=== PATIENT | male | born 1935 | race Caucasian/White ===

== ENCOUNTER 2016-12-24 10:00 | Outpatient (CLI) | payer MEDICARE, OTHER ==
[2016-12-24 11:21] LABS: #Eosinphils 0.1 thou/uL (0.0-0.7); #Lymphocytes 1.3 thou/uL (1.20-3.40); #Monocytes 0.8 thou/uL (0.11-0.59); #Neutrophils 5.2 thou/uL (1.40-6.50); %Basophils 0.6 % (0.0-1.0); %Eosinophils 1.6 % (0.0-10.0); %Lymphocytes 17.6 % (21.0-51.0); Mean Platelet Volume 7.7 fL (7.4-10.4); Red Blood Cell (RBC) Count 4.62 mill/uL (4.70-6.10); White Blood Cell (WBC) Count 7.6 thou/uL (4.8-10.8)
[2016-12-24 11:45] LABS: Anion Gap 13 mmol/L (10-20); BUN (Urea Nitrogen) 15 mg/dL (8.4-25.7); Calc. Creatinine Clearance 0 mL/min (70-130); Calcium 9.7 mg/dL (7.8-10.44); Carbon Dioxide 28 mmol/L (23-31); Chloride 96 mmol/L (98-107); Estimated GFR-MDRD 64
== END 2016-12-24 10:01 | disposition home or self-care (01) ==
LOC: LABBT 10:00
PROVIDERS: ATTEND Surgery
DX: Z01.812 Encounter for preprocedural laboratory examination (principal); K40.20 Bilateral inguinal hernia, without obstruction or gangrene, not specified as recurrent
CPT/HCPCS: 80048; 85025

== ENCOUNTER 2017-01-04 14:13 | Inpatient (IN) | payer MEDICARE, OTHER ==
--- OUTSIDE RECORDS SUMMARY | 2017-01-04 15:06 | XMS | Clinical Summary ---
:1935 Author Organization [facility] Address [address] [place] [address] Phone Care Team Providers Name Role Phone , Primary Care Provider Unavailable Allergies Not on File Current Medications Not on file Active Problems Not on file Social History Tobacco Use Types Packs/Day Years Used Date Never Assessed Sex Assigned at Date Recorded Not on file Last Filed Vital Signs Not on file Plan of Treatment Not on file Results Not on filefrom Last 3 Months
[2017-01-04 15:24] LABS: #Eosinphils 0.1 thou/uL (0.0-0.7); #Lymphocytes 1.4 thou/uL (1.20-3.40); #Monocytes 0.9 thou/uL (0.11-0.59); #Neutrophils 5.3 thou/uL (1.40-6.50); %Basophils 0.3 % (0.0-1.0); %Eosinophils 0.9 % (0.0-10.0); %Lymphocytes 18.4 % (21.0-51.0); %Monocytes 11.5 % (0.0-10.0); Hematocrit 48.5 % (42.0-52.0); Mean Platelet Volume 7.6 fL (7.4-10.4); White Blood Cell (WBC) Count 7.7 thou/uL (4.8-10.8)
[2017-01-04 15:39] LABS: ALT (SGPT) 12 U/L (8-55); AST (SGOT) 14 U/L (5-34); Alkaline Phosphatase 78 U/L (40-150); Anion Gap 17 mmol/L (10-20); BUN (Urea Nitrogen) 18 mg/dL (8.4-25.7); Bilirubin, Total 1.4 mg/dL (0.2-1.2); Calc. Creatinine Clearance 0 mL/min (70-130); Calcium 9.9 mg/dL (7.8-10.44); Carbon Dioxide 25 mmol/L (23-31); Chloride 83 mmol/L (98-107); Estimated GFR-MDRD 60; Globulin 3.9 g/dL (2.4-3.5); Protein, Total 8.3 g/dL (5.8-8.1)
[2017-01-04 16:23] LABS: Troponin I Less than 0.010 ng/mL (< 0.028)
[2017-01-04 16:46] LABS: Bilirubin Negative (Negative); Blood, Urine Negative (Negative); Glucose, Urine (Dipstick) Negative (Negative); Ketone, Urine Negative (Negative); Nitrite Negative (Negative); Protein, Urine (Dipstick) Negative (Neg-Trace); Urobilinogen 0.2 mg/dL (0.2-1.0)
[2017-01-04] MEDS ORDERED: Ondansetron ODT 4 MG TAB SL PRN (17:19)
[2017-01-04] MEDS ORDERED: Ondansetron HCl/PF 4 MG/2 ML Vial IVP PRN (17:19)
[2017-01-04] MEDS ORDERED: Acetaminophen 325 MG TAB PO PRN ×2 (17:19→19:44)
[2017-01-04] MEDS ORDERED: Mag-Al 1200 mg/1200 mg/30 ML UDCUP PO PRN (19:44)
[2017-01-04] MEDS ORDERED: Senokot 8.6 MG TAB PO PRN (19:44)
[2017-01-04] MEDS: DOBUTamine 500 mg/250 ml 250 ML IVPB SCH (21:00)
[2017-01-04] MEDS: Famotidine 20 MG TAB PO SCH (21:01)
[2017-01-04] MEDS: Tamsulosin HCl 0.4 MG CAP PO SCH (21:01)
--- NOTE | 2017-01-04 22:20 | RAD ---
AP VIEW OF THE CHEST 01/04/17 INDICATION: Congestion and orthopnea. COMPARISON: Prior exam dated 12/30/16. FINDINGS: Since the comparison examination there has been worsening opacification of the left lower lobe with a small left pleural effusion. The findings may reflect changes of a pleural effusion with atelectas is; however, pneumonia with a parapneumonic effusion cannot be excluded. Recommend correlation. Ther e is moderate cardiomegaly with mild pulmonary vascular congestion and interstitial prominence. No a cute osseous abnormality is evident. IMPRESSION: Worsening of left basilar air space opacity with small left pleural effusion may reflect pneumonia w ith parapneumonic effusion. Recommend correlation. There is mild cardiomegaly and pulmonary vascular congestion. Mild CHF cannot be excluded. Recommend followup. POS: JUAN
[2017-01-04] MEDS ORDERED: Melatonin 3 MG TAB PO PRN (22:39)
--- NOTE | 2017-01-04 23:02 | HP ---
REASON FOR ADMISSION: Acute CHF exacerbation with systolic dysfunction with known ejection fraction of around 20%, hyponatremia, confusion. HISTORY OF PRESENTING ILLNESS: The patient gives history of having severe orthopnea and has not been able to sleep for the last 2-3 days now. He also mentions that he has a bad cough with no expectoration as such. He has inguinal hernia on the left side, which is hurting him each time he coughs. No complaints of chest pain as such. He has been to the ER 2 times in the last 1 week or so for above complaints. This morning, he was confused and was taken to Dr. Jean-Baptiste's office. His oxygen saturations were 87% and he had a low blood pressure and was sent to the ER for possible dehydration and confusion per ER physician. Has no complaints of fever. Patient has frequency of urination and is about to start a prostate medication. Patient drinks usually 4 liters of water daily. His son-in-law at bedside, Mr. Pritchett, adds that he normally ambulates by himself, but he has not been able to mobilize well in the last 1 week. PAST MEDICAL AND SURGICAL HISTORY: History of CHF with an ejection fraction of around 20%, prior history of cholecystectomy, right endarterectomy, right shoulder surgery, history of cerebrovascular accident with no residual paralysis , coronary artery disease, prior history of DVT in the right leg after knee surgery. CURRENT MEDICATIONS: Lasix 40 mg p.o. daily and Coreg 6.25 mg p.o. twice daily. ALLERGIES: Allergic to ASPIRIN. PERSONAL HISTORY: Does not abuse alcohol or drugs. No history of smoking. FAMILY HISTORY: Mom at the age of 38 years from gangrene and its complications. Father has had history of coronary artery disease/[place] and at the age of 85 years. REVIEW OF SYSTEMS: The following complete review of systems was negative, unless otherwise mentioned in the HPI or below: Constitutional: Weight loss or gain, ability to conduct usual activities. Skin: Rash, itching. Eyes: Double vision, pain. ENT/Mouth: Nose bleeding, neck stiffness, pain, tenderness. Cardiovascular: Palpitations, dyspnea on exertion, orthopnea. Respiratory: Shortness of breath, wheezing, cough, hemoptysis, fever or night sweats. Gastrointestinal: Poor appetite, abdominal pain, heartburn, nausea, vomiting, constipation, or diarrhea. Genitourinary: Urgency, frequency, dysuria, nocturia. Musculoskeletal: Pain, swelling. Neurologic/Psychiatric: Anxiety, depression. Allergy/Immunologic: Skin rash, bleeding tendency. PHYSICAL EXAMINATION: GENERAL: The patient is an 81-year-old male who is currently comfortable at 40 degrees head and elevation on the ER [facility]. VITAL SIGNS: Blood pressure 105/74, pulse 76 per minute, respiratory rate 18 per minute, temperature 97.6 degrees Fahrenheit and saturating 99% on room air. NECK: Supple. There is mild elevation in JVD. HEENT: Eyes; extraocular muscles intact. Pupils reacting to light. Oral cavity; mucous membranes are dry. No exudates or congestion. CARDIOVASCULAR SYSTEM: S1, S2 heard. Regular rhythm. RESPIRATORY SYSTEM: Air entry 1+ bilateral rales plus in the infrascapular area. ABDOMEN: Soft, bowel sounds heard. No tenderness, rigidity or guarding. Has a reducible left inguinal hernia. EXTREMITIES: No peripheral edema or calf tenderness. VASCULAR SYSTEM: Peripheral pulses 1+ bilateral. No ischemic ulcerations or gangrene. CENTRAL NERVOUS SYSTEM: No gross focal deficits seen. The patient is currently awake and oriented well. PSYCHIATRIC SYSTEM: The patient's mood is euthymic. No hallucinations or delusions. LABORATORY AND IMAGING DATA: White count of 7, hemoglobin and hematocrit 16 and 48, platelet count 239, MCV is 97 with 68% neutrophils. Sodium 120, chloride 83, BUN 18, creatinine 1.1, glucose 127 and total bilirubin 1.4. Liver enzymes are within normal limits. BNP is 1690. First set of cardiac enzymes are negative. Albumin is 4.4. Chest x-ray shows chronic changes with mild pulmonary vascular congestion. CLINICAL IMPRESSION AND PLAN: The patient will be admitted to telemetry for acute on chronic congestive heart failure exacerbation with systolic dysfunction and ejection fraction of around 20% to 25% per last echo. He was also hypotensive with systolic blood pressures of 90 at present. In view of this, he will be on dobutamine drip at 5 mcg/kg per minute to allow for diuresis. He will be placed on Lasix 20 mg IV q.12 hourly if systolic blood pressure permits. He states he normally trends his systolic blood pressures in the 120s. In view of his prostate symptoms and the need for current diuresis, we will place him on Flomax 0.4 mg p.o. at bedtime. We will consult Dr. Nunes, his construction controller, and Dr. Beck for hyponatremia with likely due to congestive heart failure exacerbation. We will continue to closely monitor him on telemetry. Power of patent attorney is his daughter, her name is Sara or his son-in-law, Mr. Pritchett. He is a FULL CODE for now. MTDD
[2017-01-04] MEDS ORDERED: Zolpidem Tartrate 5 MG TAB PO SCH (23:45)
[2017-01-05 05:43] LABS: #Eosinphils 0.1 thou/uL (0.0-0.7); #Lymphocytes 1.3 thou/uL (1.20-3.40); #Neutrophils 5.3 thou/uL (1.40-6.50); %Basophils 0.4 % (0.0-1.0); %Eosinophils 1.4 % (0.0-10.0); %Lymphocytes 16.5 % (21.0-51.0); %Monocytes 13.2 % (0.0-10.0); Hematocrit 40.6 % (42.0-52.0); Mean Platelet Volume 7.6 fL (7.4-10.4); Red Blood Cell (RBC) Count 4.17 mill/uL (4.70-6.10); White Blood Cell (WBC) Count 7.7 thou/uL (4.8-10.8)
[2017-01-05 06:13] LABS: ALT (SGPT) 10 U/L (8-55); AST (SGOT) 12 U/L (5-34); Alkaline Phosphatase 55 U/L (40-150); Anion Gap 10 mmol/L (10-20); BUN (Urea Nitrogen) 15 mg/dL (8.4-25.7); Calc. Creatinine Clearance 59 mL/min (70-130); Calcium 8.8 mg/dL (7.8-10.44); Carbon Dioxide 26 mmol/L (23-31); Chloride 91 mmol/L (98-107); Estimated GFR-MDRD 67; Globulin 2.6 g/dL (2.4-3.5); Protein, Total 5.9 g/dL (5.8-8.1)
[2017-01-05] MEDS: Furosemide 20 MG/2 ML VIAL SLOW IVP SCH ×2 (06:52→14:20)
[2017-01-05] MEDS: Famotidine 20 MG TAB PO SCH ×2 (10:48→21:43)
[2017-01-05] MEDS: Enoxaparin Sodium 40 MG/0.4 ML SYRINGE SC SCH (10:49)
[2017-01-05] MEDS ORDERED: Communication Order-Pharmacy FS SCH (14:15)
--- NOTE | 2017-01-05 15:11 | CON ---
DATE OF CONSULTATION: 01/05/2017 REASON FOR CONSULTATION: Acute on chronic systolic heart failure and preop clearance. PRIMARY CARE PROVIDER: Dr. Littlejohn. HISTORY OF PRESENT ILLNESS: Mr. Cline is an 81-year-old gentleman who I have seen and evaluated in the past. He has a history of cardiomyopathy of unknown etiology. He recently presented with multi ple ER admissions for heart failure. He was subsequently admitted. He was found to be significantl y hyponatremic. He was placed on Dobutrex. Diastolic EF has been in the 20-25% range. He has been somewhat compliant with medical therapy. PAST MEDICAL HISTORY: As above including carotid endarterectomy, cholecystectomy, shoulder surgery, CVA, previous DVT. MEDICATIONS: Coreg, Lasix. ALLERGIES: ASPIRIN. FAMILY HISTORY: Negative for CAD. REVIEW OF SYSTEMS: A 10-point systems is reviewed and as above, otherwise negative. PHYSICAL EXAMINATION: VITAL SIGNS: Blood pressure 127/56, pulse 84, temperature afebrile. GENERAL: Patient is a pleasant male who is in no acute distress. The patient appears his stated ag e. NEUROLOGIC: The patient is alert and oriented times 3 with no focal neurologic deficits. HEENT: Sclerae without icterus. Mouth has moist mucous membranes with normal pallor. NECK: No JVD. Carotid upstroke brisk. No bruits bilaterally. LUNGS: Clear to auscultation with unlabored respirations. Crackles noted bilaterally BACK: No scoliosis or kyphosis. CARDIAC: Regular rate and rhythm with normal S1 and S2. No S3 or S4 noted. No significant rubs, m urmurs, thrills, or gallops noted throughout the precordium. PMI is not displaced. There is no par asternal heave. ABDOMEN: Soft, nontender, nondistended. No peritoneal signs present. No hepatosplenomegaly. No a bnormal striae. EXTREMITIES: 2+ femoral and 2+ dorsalis pedis pulses. No cyanosis, clubbing, or edema. SKIN: No gross abnormalities. PERTINENT LABS: Hemoglobin 13.4. Initial sodium of 120 up to 126. IMPRESSION: 1. Acute on chronic systolic heart failure. 2. Noncompliance. 3. Preop clearance. 4. Hyponatremia. RECOMMENDATIONS: I had a long discussion about how to proceed with Mr. Cline. I previously recomme nded a noninvasive stress study to assess for any areas of ischemia. I would feel more prudent to p kelsey with angiography given his high risk features of a decreased LVEF. We will proceed with a di agnostic angio only. He is allergic to ASPIRIN. This would be in preparation for surgery. He is a menable. I discussed the procedure in full detail with Mr. Cline. Risks included, are not limited to the following: , stroke, ID, need for emergency surgery, loss of limb, bleeding, and infect ion, as well as a reaction to the dye causing kidney failure and needing long-term dialysis. I also discussed the risks of PCI to include all of the above including coronary dissection and perforatio n in addition to acute stent thrombosis and restenosis. All questions about the procedure were answ ered. Given the above, the patient agreed to proceed with the above procedure. I would like to get him off Dobutrex and make sure he is euvolemic prior to proceeding. He agrees.
--- NOTE | 2017-01-05 15:41 | PDOC.PN ---
- Subjective Encounter Start Date: 01/05/17 Encounter Start Time: 15:35 Subjective: f/u for acute/chronic systolic CHF exacerbation with associated hyponatremi -: and hypotension. Remains on Dobutamine gtt for diuresis and Na+ improved -: Initial plan for [facility] to define anatomy and wean off Dobutamine. - Objective Resuscitation Status: Resuscitation Status FULL:Full Resuscitation MAR Reviewed: Yes Vital Signs & Weight: Vital Signs (12 hours) Pulse Pulse Pulse Pulse BP BP BP 01/05/17 10:40 84 80 127/56 L 172/65 H 01/05/17 09:50 81 88 105/55 L 106/57 L 01/05/17 08:21 89 93 95 91 93/50 L 95/53 L 93/47 L BP Pulse Ox Pulse Ox 01/05/17 10:40 96 01/05/17 09:50 94 L 98 01/05/17 08:21 94/51 L Weight Weight 168 lb I&O: 01/04/17 01/05/17 01/06/17 06:59 06:59 06:59 Intake Total 535 Output Total 1500 Balance -965 Result Diagrams: 01/05/17 05:09 01/05/17 13:44 Additional Labs: Laboratory Tests 07/06/16 12/30/16 01/04/17 02:35 08:00 14:59 Sodium 120 L Total Bilirubin 1.4 H B-Natriuretic Peptide 1138.1 H 1954.6 H 01/04/17 01/05/17 14:59 05:09 Sodium 123 L Total Bilirubin 1.0 B-Natriuretic Peptide 1690.4 H Radiology Reviewed by me: Yes (PCXR - bilat pulm edema, LLL opacity, chronic) EKG Reviewed by me: Yes (Tele - SR in 90's) Phys Exam - Physical Examination Constitutional: NAD alert, responsive HEENT: PERRLA, oral pharynx no lesions Neck: no JVD, supple mild diminished sounds in L base Cardiovascular: RRR Gastrointestinal: soft, non-tender, no distention, positive bowel sounds Musculoskeletal: no edema, pulses present Neurological: normal sensation, moves all 4 limbs Psychiatric: A&O x 3 Skin: normal turgor, cap refill <2 seconds Dx/Plan (1) Acute on chronic systolic congestive heart failure, NYHA class 2 Code(s): I50.23 - ACUTE ON CHRONIC SYSTOLIC (CONGESTIVE) HEART FAILURE Status : Acute Comment: EF 20-25%, continue Dobutamine gtt for renal perfusion and diuresis, plan for LHC to define coronary anatomy (2) Hyponatremia Code(s): E87.1 - HYPO-OSMOLALITY AND HYPONATREMIA Status: Acute Comment: Improved, secondary to volume overload in context of CHF exacerbation (3) Non-compliance Code(s): Z91.19 - PATIENT'S NONCOMPLIANCE W OTH MEDICAL TREATMENT AND REGIMEN Status: Chronic Comment: Improved, agreeing to pursue LHC for define coronary anatomy (4) Cardiomyopathy Code(s): I42.9 - CARDIOMYOPATHY, UNSPECIFIED Status: Chronic Comment: Unclear if ischemic in nature, plan for LHC as previously stated (5) Inguinal hernia of left side without obstruction or gangrene Code(s): K40.90 - UNIL INGUINAL HERNIA, W/O OBST OR GANGR, NOT SPCF RECUR Status: Chronic Comment: Likely will need surgical intervention, elective - Plan plan discussed w/ family Stable overall -: Wean off Dobutamine gtt -: Plan for LHC in am -: Trial Mucinex DM po BID -: Tessalon 200mg TID * AM lab: BMP
--- NOTE | 2017-01-05 16:14 | PRG ---
DATE OF SERVICE: 01/05/2017 SUBJECTIVE: Patient was seen and examined at bedside and overnight events noted. Patient denies an y shortness of breath or chest pain or palpitation. No history of nausea or vomiting or diarrhea or fever or chills or cramps. OBJECTIVE: GENERAL: This is a well-built white male in no apparent distress. VITAL SIGNS: Temperature 98.7, pulse 80, respiratory rate 18, blood pressure 127/50. HEENT: Atraumatic, normocephalic. Oral mucosa is moist. NECK: Supple, no masses. CARDIOVASCULAR: S1, S2. Rate and rhythm regular. RESPIRATORY: Clear. MUSCULOSKELETAL: No tenderness, no edema. DERMATOLOGIC: No skin rash. NEUROLOGIC: Alert and awake. PSYCHIATRIC: Mood and affect normal. LABORATORY DATA: Sodium is 126, phosphorus 3.7, BUN is 16, creatinine is 1.0. ASSESSMENT AND PLAN: 1. Hyponatremia, most likely from hypervolemia and cardiorenal syndrome. Sodium level getting bett er, it is 126 now. Continue on current management. 2. Limit fluid intake. 3. Hyperchloremia. 4. Edema controlled. 5. Hypertension. 6. Cardiorenal syndrome. 7. Continue Lasix. We will follow.
[2017-01-05] MEDS: guaiFENesin/DM ER PO SCH (16:17)
[2017-01-05] MEDS ORDERED: Benzonatate 100 MG CAP PO SCH (16:30)
[2017-01-05] MEDS: DOBUTamine 500 mg/250 ml 250 ML IVPB SCH (16:32)
--- NOTE | 2017-01-05 16:56 | CON ---
DATE OF SERVICE: 01/04/2017 NEPHROLOGY CONSULTATION NOTE CONSULTING PHYSICIAN: Isaías Littlejohn M.D. REASON FOR CONSULTATION: Hyponatremia. REASON FOR ADMISSION: Shortness of breath and confusion. HISTORY OF PRESENT ILLNESS: This is an 81-year-old male with history of congestive heart failure, cerebrovascular accident, carotid artery disease, and coronary artery disease, who came to the hospital with above complaints and was found to have sodium of 120. Nephrology was consulted. The patient was given IV Lasix and is feeling better. His sodium was also improved to 123 from 120. No fever or chills, no nausea or vomiting, no diarrhea. No shortness of breath. No chest pain or palpitation reported. PAST MEDICAL HISTORY: Positive for CHF, carotid artery disease, cerebrovascular accident, coronary artery disease, DVT. PAST SURGICAL HISTORY: Cholecystectomy, right endarterectomy, right shoulder surgery. HOME MEDICATIONS: Lasix and Coreg. ALLERGIES: ASPIRIN. SOCIAL HISTORY: No smoking, alcohol or illicit drug abuse. FAMILY HISTORY: No history of kidney disease. REVIEW OF SYSTEMS: The following complete review of systems was negative, unless otherwise mentioned in the HPI or below: Constitutional: Weight loss or gain, ability to conduct usual activities. Skin: Rash, itching. Eyes: Double vision, pain. ENT/Mouth: Nose bleeding, neck stiffness, pain, tenderness. Cardiovascular: Palpitations, dyspnea on exertion, orthopnea. Respiratory: Shortness of breath, wheezing, cough, hemoptysis, fever or night sweats. Gastrointestinal: Poor appetite, abdominal pain, heartburn, nausea, vomiting, constipation, or diarrhea. Genitourinary: Urgency, frequency, dysuria, nocturia. Musculoskeletal: Pain, swelling. Neurologic/Psychiatric: Anxiety, depression. Allergy/Immunologic: Skin rash, bleeding tendency. PHYSICAL EXAMINATION: GENERAL: This is a well-built male in no apparent distress. VITAL SIGNS: Temperature 97.7, pulse 82, respiratory rate 18, blood pressure 126/50. HEENT: Atraumatic, normocephalic. Oral mucosa is moist. NECK: Supple, no masses. CARDIOVASCULAR: S1, S2 heard. RESPIRATORY: Clear. ABDOMEN: Soft. MUSCULOSKELETAL: No tenderness, no edema. DERMATOLOGIC: No skin rash. NEUROLOGIC: Alert and awake. PSYCHIATRIC: Mood and affect normal. LABORATORY DATA: Hemoglobin is 13.4, potassium is 3.7. Sodium is 123 from 120 , BUN 50. Albumin is 3.9. ASSESSMENT AND PLAN: 1. Hyponatremia, most likely hypervolemic secondary to cardiorenal syndrome. Agree with Lasix for now. 2. Hypochloremia. 3. Acidosis. 4. Hypoalbuminemia. Increase protein intake. 5. Hypertension, stable. 6. Edema. 7. Cardiorenal syndrome. Continue on intravenous Lasix. 8. Limit fluid intake to 1 liter per day and continue on Lasix. We will monitor. Thank you for the consultation. INDY
[2017-01-05] MEDS ORDERED: guaiFENesin/DM ER PO SCH (17:00)
[2017-01-05] MEDS: Benzonatate 100 MG CAP PO SCH (21:43)
[2017-01-05] MEDS: Tamsulosin HCl 0.4 MG CAP PO SCH (21:44)
[2017-01-06] MEDS: Furosemide 20 MG/2 ML VIAL SLOW IVP SCH ×2 (05:15→15:12)
[2017-01-06] MEDS: Famotidine 20 MG TAB PO SCH ×2 (05:15→20:51)
[2017-01-06] MEDS: Enoxaparin Sodium 40 MG/0.4 ML SYRINGE SC SCH (05:16)
[2017-01-06] MEDS: Benzonatate 100 MG CAP PO SCH ×3 (05:16→20:51)
[2017-01-06 05:51] LABS: Anion Gap 15 mmol/L (10-20); BUN (Urea Nitrogen) 14 mg/dL (8.4-25.7); Calc. Creatinine Clearance 57 mL/min (70-130); Calcium 9.2 mg/dL (7.8-10.44); Carbon Dioxide 26 mmol/L (23-31); Chloride 90 mmol/L (98-107); Estimated GFR-MDRD 67
[2017-01-06] MEDS: guaiFENesin/DM ER PO SCH ×2 (09:38→20:50)
[2017-01-06] MEDS ORDERED: traMADol HCl 50 MG TAB PO PRN (10:40)
[2017-01-06] MEDS ORDERED: Nitroglycerin 0.4 MG TAB (25 Tab Bottle) SL PRN (10:40)
[2017-01-06] MEDS ORDERED: Acetaminophen/Codeine 30-300mg Tablet PO PRN ×2 (10:40)
[2017-01-06] MEDS ORDERED: Sodium Chloride 0.9% 1,000 ML IV SCH (10:45)
[2017-01-06] MEDS ORDERED: Sodium Chloride 0.9% 200 ML IV SCH (10:45)
--- NOTE | 2017-01-06 11:58 | PDOC.PN ---
- Subjective Encounter Start Date: 01/06/17 Encounter Start Time: 11:56 Mr. Cline says he is feeling fine. He denies feeling short of breath, and denies any chest pain. - Objective Resuscitation Status: Resuscitation Status FULL:Full Resuscitation MAR Reviewed: Yes Vital Signs & Weight: Vital Signs (12 hours) Pulse BP Pulse Ox Pulse Ox 01/06/17 09:29 93 111/57 L 92 L 01/06/17 04:30 93 L Weight Weight 167 lb 11.2 oz I&O: 01/05/17 01/06/17 01/07/17 06:59 06:59 06:59 Intake Total 535 1684 Output Total 1500 775 Balance -965 909 Result Diagrams: 01/05/17 05:09 01/06/17 05:06 Phys Exam - Physical Examination HEENT: PERRLA Respiratory: no wheezing, no rales, no rhonchi, clear to auscultation bilateral Cardiovascular: RRR, no significant murmur Gastrointestinal: soft, non-tender, positive bowel sounds Musculoskeletal: no edema Dx/Plan (1) Acute on chronic systolic congestive heart failure, NYHA class 2 Code(s): I50.23 - ACUTE ON CHRONIC SYSTOLIC (CONGESTIVE) HEART FAILURE Status : Acute Comment: EF 20-25%, continue Dobutamine gtt for renal perfusion and diuresis, plan for [facility] to define coronary anatomy (2) Hyponatremia Code(s): E87.1 - HYPO-OSMOLALITY AND HYPONATREMIA Status: Acute Comment: Improved, secondary to volume overload in context of CHF exacerbation (3) Cerebral vascular disease Code(s): I67.9 - CEREBROVASCULAR DISEASE, UNSPECIFIED Status: Chronic - Plan * Acute on chronic systolic heart failure- patient is diuresing well on Dobutamine * Hypotension- resolved * CAD- awaiting Cath results * Continue as per Cardiology.
[2017-01-06] MEDS ORDERED: Iopamidol 370 76% 100 ML VIAL ONE (14:46)
[2017-01-06] MEDS: DOBUTamine 500 mg/250 ml 250 ML IVPB SCH (15:12)
--- NOTE | 2017-01-06 15:40 | PRG ---
DATE OF SERVICE: 01/06/2017 SUBJECTIVE: Patient was seen and examined at bedside and overnight events noted. Patient denies an y shortness of breath or chest pain or palpitation. No history of nausea or vomiting or diarrhea or fever or chills or cramps. OBJECTIVE: GENERAL: This is a well-built male in no apparent distress. VITAL SIGNS: Temperature 97.9, pulse 100, respiratory rate 18, blood pressure 111/57. HEENT: Atraumatic, normocephalic. Oral mucosa is moist. NECK: Supple. CARDIOVASCULAR: S1 and S2 heard, rate and rhythm regular. RESPIRATORY: Clear to auscultation. GASTROINTESTINAL: Abdomen is soft. MUSCULOSKELETAL: No tenderness, no edema. DERMATOLOGIC: No skin rash. NEUROLOGIC: Alert and awake and oriented X3. No focal neurologic deficits. Moving all the extremi ties. PSYCHIATRIC: Mood and affect normal. LABORATORY DATA: Potassium is 3.8, sodium is 127, and creatinine 1.0. ASSESSMENT AND PLAN: 1. Hyponatremia. Sodium level is slowly getting better. Continue on current management. Continue on Lasix. Recommend fluid restriction 1 liter per day. 2. Hypochloremia. 3. Edema, controlled. 4. Hypertension. 5. Cardiorenal syndrome. Continue Lasix. Fluid restriction as tolerated.
[2017-01-06] MEDS: Tamsulosin HCl 0.4 MG CAP PO SCH (20:51)
[2017-01-07] MEDS: Furosemide 20 MG/2 ML VIAL SLOW IVP SCH (05:41)
[2017-01-07 09:08] LABS: Anion Gap 12 mmol/L (10-20); BUN (Urea Nitrogen) 12 mg/dL (8.4-25.7); Calc. Creatinine Clearance 53 mL/min (70-130); Calcium 9.4 mg/dL (7.8-10.44); Carbon Dioxide 29 mmol/L (23-31); Chloride 91 mmol/L (98-107); Estimated GFR-MDRD 62
[2017-01-07] MEDS: guaiFENesin/DM ER PO SCH (09:17)
[2017-01-07] MEDS: Benzonatate 100 MG CAP PO SCH ×2 (09:17→14:53)
[2017-01-07] MEDS: Enoxaparin Sodium 40 MG/0.4 ML SYRINGE SC SCH (09:19)
[2017-01-07] MEDS: Famotidine 20 MG TAB PO SCH (09:19)
--- NOTE | 2017-01-07 09:29 | PRG ---
Patient Name: CELIA FRANK Date of service: 01/07/2017 Subjective: Patient was seen and examined at bedside and overnight events noted. Patient denies any shortness of breath or chest pain or palpitation. No history of nausea or vomiting or diarrhea or fever or chills or cramps. Objective: General: This is a well-built male in no apparent distress. Vital signs : Temperature 97.9, pulse 70, respirations 18, blood pressure 105/59. HEENT: Atraumatic, normocephalic. Oral mucosa is moist. Neck: Supple. Cardiovascular: S1 S2 heard. Rate and rhythm regular. Respiratory: Clear to auscultation Gastrointestinal: Abdomen is soft. Musculoskeletal: No tenderness. No edema. Dermatologic: No skin rash Neurologic: Alert and awake and oriented X3. No focal neurologic deficits. Moving all the extremi ties. Psychiatric: Mood and affect normal. LABORATORY DATA: Sodium is 128, potassium is 4.1, BUN 12, creatinine 1.13. ASSESSMENT AND PLAN: 1. Hyponatremia secondary to fluid overload. Limit fluid intake and continue on Lasix. Continue h ome dose of Lasix. 2. Hypokalemia. 3. Edema. 4. Hypertension. 5. Cardiorenal syndrome. Continue on Lasix as tolerated at home, limit fluid intake.
--- NOTE | 2017-01-07 10:16 | PDOC.PN ---
- Subjective Encounter Start Date: 01/07/17 Encounter Start Time: 10:14 Mr. Cline says he is feeling fine. He denies chest pain or shortness of breath. - Objective Resuscitation Status: Resuscitation Status FULL:Full Resuscitation MAR Reviewed: Yes Vital Signs & Weight: Vital Signs (12 hours) Temp Pulse Resp BP Pulse Ox 01/07/17 08:30 92 17 145/61 H 95 01/07/17 05:00 90 105/59 L 01/07/17 04:00 97.9 F 73 18 154/63 H 96 01/07/17 02:46 99 01/07/17 00:00 94 128/58 L Weight Weight 168 lb I&O: 01/06/17 01/07/17 01/08/17 06:59 06:59 06:59 Intake Total 1684 700 Output Total 775 400 Balance 909 300 Result Diagrams: 01/05/17 05:09 01/07/17 08:39 Phys Exam - Physical Examination HEENT: PERRLA Respiratory: no wheezing, no rales, no rhonchi, clear to auscultation bilateral Cardiovascular: RRR, no significant murmur Gastrointestinal: soft, non-tender, positive bowel sounds Musculoskeletal: no edema Dx/Plan (1) Acute on chronic systolic congestive heart failure, NYHA class 2 Code(s): I50.23 - ACUTE ON CHRONIC SYSTOLIC (CONGESTIVE) HEART FAILURE Status : Acute Comment: EF 20-25%, continue Dobutamine gtt for renal perfusion and diuresis, plan for [facility] to define coronary anatomy (2) Hyponatremia Code(s): E87.1 - HYPO-OSMOLALITY AND HYPONATREMIA Status: Acute Comment: Improved, secondary to volume overload in context of CHF exacerbation (3) Cerebral vascular disease Code(s): I67.9 - CEREBROVASCULAR DISEASE, UNSPECIFIED Status: Chronic - Plan * Acute on chronic systolic heart failure- he is compensated * Stable for discharge later today..
--- NOTE | 2017-01-07 11:44 | DIS ---
DATE OF ADMISSION: 01/04/2017 DATE OF DISCHARGE: 01/07/2017 PRIMARY CARE PHYSICIAN: Louie Jean-Baptiste M.D. DISCHARGE DISPOSITION: Home. PRIMARY DISCHARGE DIAGNOSES: 1. Acute on chronic systolic heart failure. 2. Ischemic cardiomyopathy. 3. History of cerebral vascular disease. DISCHARGE MEDICATIONS: Lasix 40 mg daily and Coreg 3.125 mg twice a day. The patient is not being discharged on an KALPANA inhibitor due to chronic kidney disease and hypertension. PROCEDURES DONE THE DURING ADMISSION: The patient had a cardiac catheterization. CODE STATUS: FULL CODE. ALLERGIES: ASPIRIN and NSAIDS. HOSPITAL COURSE: Mr. Cline is a pleasant 81-year-old gentleman who presented to the emergency room with shortness of breath and some confusion. He was felt to be volume overloaded as well as having hyponatremia. The hyponatremia was felt to be secondary to decompensated heart failure and volume overload. He was admitted and seen by Cardiology. He was initially hypotensive on admission and as a result he was placed on dobutamine to help facilitate diuresis. He diuresed well during the course of his hospital stay. He underwent a cardiac catheterization showing some disease to the circumflex, which would be treated medically for now. He was instructed on fluid restriction as he had admitted taking an excessive amount of fluids prior to admission. He was also seen by Nephrology during this hospital stay and once stabilized, he was able to be discharged home to continue the same dose of Lasix and continue Coreg but at a lower dose due to 3.125mg twice day . He will need to be followed closely with regards to his volume status. He has a scale at home and has instructions on what to do when weighing himself. The patient was discharged home on 2016. INDY
[2017-01-07] MEDS ORDERED: Sodium Chloride 0.9% 250 ML 250 ML IVPB SCH (11:45)
--- NOTE | 2017-01-07 14:13 | PRG ---
DATE OF SERVICE: 01/07/2017 SUBJECTIVE: Mr. Cline is doing well. His only complaint is the food at the hospital. No chest isac n, pressure, shortness of breath. PHYSICAL EXAMINATION: VITAL SIGNS: Blood pressure 96/54, pulse 86, temperature 97.9. LUNGS: Clear to auscultation. CARDIAC: Regular rate and rhythm. ABDOMEN: Soft, nontender, nondistended. EXTREMITIES: No edema. IMPRESSION: 1. One-vessel coronary artery disease. 2. Acute on chronic systolic heart failure. 3. Noncompliance. 4. Hypotension. RECOMMENDATIONS: 1. Stop Lasix. 2. Given IV bolus of 250 mL. He is likely mildly volume contracted after Lasix. 3. Start dobutamine. 4. If stable, I would recommend discharge from my standpoint. Also, patient is felt to be low risk for cardiovascular complications for hernia repair. We would wait 3-4 weeks prior to proceeding gi guerrero recent acute heart failure.
[2017-01-07 16:46] VITALS: TEMP 99.2
[2017-01-07 18:59] VITALS: BP 117/62
--- NOTE | 2017-01-15 14:19 | EKG ---
Test Reason : Blood Pressure : / mmHG Vent. Rate : 075 BPM Atrial Rate : 075 BPM P-R Int : 196 ms QRS Dur : 118 ms QT Int : 434 ms P-R-T Axes : 046 -24 099 degrees QTc Int : 484 ms Sinus rhythm with occasional Premature ventricular complexes Possible Left atrial enlargement Left ventricular hypertrophy with QRS widening Abnormal ECG Confirmed by GERI TAVAREZ ([id number]), international editorial producer MADISON FERREIRA ([id number]) on 01/15/2017 2:19:04 PM Referred By: Confirmed By:GERI TAVAREZ
== END 2017-01-07 19:54 | disposition home or self-care (01) | DRG 286 ==
LOC: ERS 14:13 → T4-B 16:00 → 2NO 20:32
PROVIDERS: ADMIT Internal Medicine; ATTEND Internal Medicine
PROC: 4A023N7 Measurement of Cardiac Sampling and Pressure, Left Heart, Percutaneous Approach (ICD-10-PCS; principal; 2017-01-06)
PROC: B2111ZZ Fluoroscopy of Multiple Coronary Arteries using Low Osmolar Contrast (ICD-10-PCS; 2017-01-06)
PROC: B2151ZZ Fluoroscopy of Left Heart using Low Osmolar Contrast (ICD-10-PCS; 2017-01-06)
DX: I13.0 Hypertensive heart and chronic kidney disease with heart failure and stage 1 through stage 4 chronic kidney disease, or unspecified chronic kidney disease (principal); I50.23 Acute on chronic systolic (congestive) heart failure; I95.9 Hypotension, unspecified; E87.2 Acidosis; E87.8 Other disorders of electrolyte and fluid balance, not elsewhere classified; E88.09 Other disorders of plasma-protein metabolism, not elsewhere classified; E87.1 Hypo-osmolality and hyponatremia; I25.5 Ischemic cardiomyopathy; N18.9 Chronic kidney disease, unspecified; I25.10 Atherosclerotic heart disease of native coronary artery without angina pectoris; Z86.73 Personal history of transient ischemic attack (TIA), and cerebral infarction without residual deficits; Z86.718 Personal history of other venous thrombosis and embolism; Z91.19 Patient's noncompliance with other medical treatment and regimen; E87.6 Hypokalemia; K40.90 Unilateral inguinal hernia, without obstruction or gangrene, not specified as recurrent
CPT/HCPCS: 36415; 71010; 76942; 80048; 80053; 80061; 81003; 82553; 83880; 84484; 85025; 93005; 93306; 93458; 93798; 96360; A4216; C1760; C1769; G8978-GP-CI; G8979-GP-CI; G8980-GP-CI; G8987-GO-CI; G8988-GO-CI; G8989-GO-CI; J1250; J1644; J1650; J1940; J7050

== ENCOUNTER 2017-01-15 15:08 | Inpatient (IN) | payer MEDICARE, OTHER ==
--- OUTSIDE RECORDS SUMMARY | 2017-01-15 15:11 | XMS | Clinical Summary ---
:[address] [facility] Address [address] [place] [address] Phone Care Team Providers Name Role Phone [...]
--- NOTE | 2017-01-15 15:47 | RAD ---
UPRIGHT PORTABLE CHEST ONE VIEW 01/15/17 HISTORY: 81-year-old male with weakness and chest pain. COMPARISON: 01/04/17. FINDINGS: There is worsening left pleural effusion and bilateral vascular congestion and interstitial edema ch anges bilaterally with minimal cardiomegaly having more the appearance of congestive heart failure a nd pulmonary edema. The possibility of some minimal left lower lobe pneumonia or pneumonitis is a c onsideration as well. Correlate clinically. IMPRESSION: Evidence for congestive heart failure showing worsening from prior study Underlying left lower lobe pneumonia or pneumonitis is a consideration as well. POS: [facility]
[2017-01-15 15:54] LABS: #Basophils 0.1 thou/uL (0.0-0.2); #Eosinphils 0.1 thou/uL (0.0-0.7); #Lymphocytes 0.7 thou/uL (1.20-3.40); #Monocytes 0.7 thou/uL (0.11-0.59); #Neutrophils 4.9 thou/uL (1.40-6.50); %Basophils 1.2 % (0.0-1.0); %Eosinophils 1.6 % (0.0-10.0); %Lymphocytes 10.9 % (21.0-51.0); %Monocytes 11.3 % (0.0-10.0); Hematocrit 41.3 % (42.0-52.0); Mean Platelet Volume 7.1 fL (7.4-10.4); Red Blood Cell (RBC) Count 4.26 mill/uL (4.70-6.10); White Blood Cell (WBC) Count 6.5 thou/uL (4.8-10.8)
[2017-01-15 16:14] LABS: ALT (SGPT) 12 U/L (8-55); AST (SGOT) 14 U/L (5-34); Alkaline Phosphatase 75 U/L (40-150); Anion Gap 17 mmol/L (10-20); BUN (Urea Nitrogen) 11 mg/dL (8.4-25.7); Bilirubin, Total 0.7 mg/dL (0.2-1.2); CK (CPK) 30 U/L (30-200); Calc. Creatinine Clearance 0 mL/min (70-130); Carbon Dioxide 24 mmol/L (23-31); Chloride 82 mmol/L (98-107); Estimated GFR-MDRD 71; Globulin 3.3 g/dL (2.4-3.5); Protein, Total 6.9 g/dL (5.8-8.1)
[2017-01-15 16:19] LABS: Troponin I Less than 0.010 ng/mL (< 0.028)
[2017-01-15] MEDS ORDERED: Furosemide 40 MG/4 ML VIAL ONE (17:44)
[2017-01-15] MEDS ORDERED: Acetaminophen 650 MG Suppository PR PRN (17:50)
[2017-01-15] MEDS ORDERED: Acetaminophen 325 MG TAB PO PRN (17:50)
[2017-01-15] MEDS ORDERED: Ondansetron HCl/PF 4 MG/2 ML Vial IVP PRN (17:50)
[2017-01-15 18:52] LABS: Troponin I Less than 0.010 ng/mL (< 0.028)
[2017-01-15 19:57] LABS: Osmolality, Serum 244 mOsm/kg (280-295)
[2017-01-15 20:20] LABS: Anion Gap 14 mmol/L (10-20); Carbon Dioxide 25 mmol/L (23-31); Chloride 84 mmol/L (98-107)
--- NOTE | 2017-01-15 21:36 | HP ---
PRIMARY CARE PHYSICIAN: Louie Jean-Baptiste M.D. CHIEF COMPLAINT: Generalized weakness. HISTORY OF PRESENT ILLNESS: Mr. Cline is a pleasant 81-year-old gentleman who was seen at [facility] on 01/15/2017 complaining of generalized weakness. He reports that he has been unable to eat for the last 2 weeks. He reports that he feels full after eating a small amount of food. He occasionally vomits after eating. He also reports not having a bowel movement in 2 weeks; however, his daughter who was in the room corrected him saying he had a b owel movement yesterday. He denies any fevers or chills. He denies any nausea or vomiting. He thi nks he lost weight but is unable to tell me how much. REVIEW OF SYSTEMS: The following complete review of systems was negative, unless otherwise mentione d in the HPI or below: Constitutional: Weight loss or gain, sense of well-being, ability to conduct usual activities, exer cise tolerance. Skin/Breast: Rash, itching, changes in hair growth or loss, nail changes, breast lumps, tenderness, swelling, nipple discharge. Eyes: Vision, double vision, tearing, blind spots, pain. ENT/Mouth: Headaches (location, time of onset, duration, precipitating factors), vertigo, lighthead edness, injury. Vision, double vision, tearing, blind spots, pain, nose bleeding, colds, obstruction , discharge, dental difficulties, gingival bleeding, dentures, neck stiffness, pain, tenderness, mas ses in thyroid or other areas. Cardiovascular: Precordial pain, substernal distress, palpitations, syncope, dyspnea on exertion, o rthopnea, nocturnal paroxysmal dyspnea, edema, cyanosis, hypertension, heart murmurs, varicosities, phlebitis, claudication. Respiratory: Pain, shortness of breath, wheezing, stridor, cough, hemoptysis, fever or night sweats . Gastrointestinal: Poor appetite, dysphagia, indigestion, abdominal pain, heartburn, eructation, mekhi sea, vomiting, hematemesis, jaundice, constipation, or diarrhea, abnormal stools (laura-colored, bernarda y, bloody, greasy, foul smelling), flatulence, hemorrhoids, recent changes in bowel habits. Genitourinary: Urgency, frequency, dysuria, nocturia, hematuria, polyuria, oliguria, unusual (or ch riky in) color of urine, stones, hesitancy, change in size of stream, dribbling, acute retention or incontinence, libido, potency. Musculoskeletal: Pain, swelling, redness or heat of muscles or joints, limitation, of motion, muscu lar weakness, atrophy, cramps. Neurologic/Psychiatric: Convulsions, paralysis, tremor, incoordination, paresthesias, difficulties with memory of speech, sensory or motor disturbances, or muscular coordination (ataxia, tremor), emo tional problems, anxiety, depression, previous psychiatric care, unusual perceptions, hallucinations . Allergy/Immunologic: Skin rash, anemia, bleeding tendency, polydipsia, polyuria, intolerance to hea t or cold. PAST MEDICAL HISTORY: Significant for congestive heart failure with a left ventricular ejection fra ction of around 20%, cerebrovascular accident with no residual paralysis, coronary artery disease, D VT in the right leg after knee surgery in the past. PAST SURGICAL HISTORY: Significant for cholecystectomy, right endarterectomy, right shoulder surger y, and right knee surgery. SOCIAL HISTORY: The patient denies tobacco use, alcohol use, or recreational drug use. FAMILY HISTORY: No family history of premature coronary artery disease. Mother at age 38 year s from gangrene. Father had coronary artery disease. ALLERGIES: ASPIRIN, NONSTEROIDAL ANTI-INFLAMMATORY AGENTS. CURRENT MEDICATIONS: Include carvedilol 6.25 mg 2 times a day, Lasix 40 mg daily, and Flomax 0.4 mg daily. CODE STATUS: I discussed his code status. He is FULL CODE. PHYSICAL EXAMINATION: GENERAL: Mr. Cline is awake and alert, not in acute distress. VITAL SIGNS: Blood pressure is 104/66, pulse is 71. He is breathing at a rate of 17 and saturating 98% on room air. He is afebrile. EYES: No scleral icterus. No conjunctival pallor. ENT: Moist mucosal membranes, no oropharyngeal erythema or exudates. NECK: Supple, nontender, normal range of movement, trachea is midline. RESPIRATORY: Accessory muscles of breathing are not active. Chest wall movements are symmetric antonella aterally. LUNGS: Clear to auscultation without wheeze, rhonchi, or crepitations. CARDIOVASCULAR: S1 and S2 are heard, regular. Peripheral pulses are palpable. No pericardial rub, no carotid bruit. ABDOMEN: Soft, nontender, bowel sounds heard, no hepatomegaly, no splenomegaly. SKIN: No rashes or subcutaneous nodules. NEUROLOGIC: Cranial nerves II through XII are intact. Deep tendon reflexes are 2+. MUSCULOSKELETAL: Power is 5/5 in all 4 extremities. Normal range of movement at all major extremit y joints. PSYCHIATRIC: Normal mood, normal affect. The patient is oriented to person, place, and time. SKIN: No rashes or subcutaneous nodules. LABORATORY DATA AND IMAGING: Mr. Cline's labs and investigations were reviewed. I reviewed his korin ctrocardiogram, which shows normal sinus rhythm, no ST changes to suggest an acute coronary syndrome . I also reviewed his chest x-ray, which shows interstitial edema. Laboratory investigations show normal white count, macrocytic anemia with hemoglobin 13.9, normal platelet count, decreased sodium of 118, normal potassium, normal creatinine, unremarkable liver function tests, normal troponin I, a nd elevated troponin I of 0.010. Lactic acid level is normal. ASSESSMENT AND PLAN: Mr. Cline is a pleasant 81-year-old gentleman who was seen at [facility] on 01/15/2017. His problem list includes: 1. Generalized weakness: Most likely secondary to hyponatremia. 2. Hyponatremia: The etiology is unclear, but Mr. Cline reports a diet that is mostly consisting o f liquids because of his difficulty with eating. We will start him on fluid restriction and recheck electrolytes. We will initiate workup including serum and urine osmolality, TSH, and fasting lipid profile. We will consult Nephrology. 3. Congestive heart failure: Mr. Cline is in congestive heart failure exacerbation. We will start him on intravenous diuretics. 4. Difficulty swallowing: We will continue clear liquids for now. We will consult Gastroenterolog y service for possible scope studies. Mr. Cline reports having esophagogastroduodenoscopies in the past but none recently. He does have a history of peptic ulcer disease. 5. Coronary artery disease: Appears to be stable. Many thanks for allowing me to participate in your patient's care. Please feel free to contact me w ith any questions or concerns. LEVEL OF RISK: High. LEVEL OF COMPLEXITY: High.
[2017-01-15 21:37] LABS: Troponin I Less than 0.010 ng/mL (< 0.028)
[2017-01-16 00:12] LABS: Anion Gap 11 mmol/L (10-20); Carbon Dioxide 27 mmol/L (23-31); Chloride 87 mmol/L (98-107)
[2017-01-16] MEDS: Furosemide 40 MG/4 ML VIAL SLOW IVP SCH ×2 (05:29→14:15)
[2017-01-16 06:27] LABS: Anion Gap 12 mmol/L (10-20); BUN (Urea Nitrogen) 10 mg/dL (8.4-25.7); Calc. Creatinine Clearance 58 mL/min (70-130); Calcium 8.5 mg/dL (7.8-10.44); Carbon Dioxide 27 mmol/L (23-31); Chloride 86 mmol/L (98-107); Estimated GFR-MDRD 69
[2017-01-16 06:43] LABS: Hematocrit 36.5 % (42.0-52.0); Neutrophil 65 % (42-75); Reactive Lymphocytes 1 % (0-10); Red Blood Cell (RBC) Count 3.75 mill/uL (4.70-6.10); White Blood Cell (WBC) Count 6.2 thou/uL (4.8-10.8)
[2017-01-16 07:25] LABS: Potassium, Urine 20.7 mmol/L
[2017-01-16] MEDS ORDERED: FLU VACC TS2017-18 (>65YR) 0.5 ML SYRINGE IM ONE (09:00)
--- NOTE | 2017-01-16 11:18 | PDOC.PN ---
- Subjective Encounter Start Date: 01/16/17 Encounter Start Time: 09:30 Subjective: wants to eat, has no trouble swallowing but doesn't feel like eating -: he wants seasoning for his food along with salt -: no sob - Objective Resuscitation Status: Resuscitation Status FULL:Full Resuscitation MAR Reviewed: Yes Vital Signs & Weight: Vital Signs (12 hours) Temp Pulse Pulse Pulse Resp BP BP 01/16/17 08:58 67 80 94/52 L 104/59 L 01/16/17 08:00 97.2 F L 64 16 01/16/17 07:50 97.2 F L 64 16 01/16/17 04:00 97.6 F 73 18 01/16/17 00:00 97.7 F 70 18 BP Pulse Ox Pulse Ox Pulse Ox 01/16/17 08:58 99 98 01/16/17 08:00 95 01/16/17 07:50 92/50 L 95 01/16/17 04:00 95/58 L 97 01/16/17 00:00 92/56 L Weight Weight 166 lb I&O: 01/15/17 01/16/17 01/17/17 06:59 06:59 06:59 Intake Total 320 240 Balance 320 240 Result Diagrams: 01/16/17 05:28 01/16/17 05:28 Phys Exam - Physical Examination HEENT: PERRLA, moist MMs Neck: no JVD, supple Respiratory: no wheezing basal rales+ Cardiovascular: RRR, no significant murmur Gastrointestinal: soft, non-tender, positive bowel sounds Musculoskeletal: no edema, pulses present Neurological: non-focal, moves all 4 limbs Psychiatric: A&O x 3 Dx/Plan (1) CHF exacerbation Code(s): I50.9 - HEART FAILURE, UNSPECIFIED Status: Acute Qualifiers: Congestive heart failure type: combined Qualified Code(s): I50.43 - Acute on chronic combined systolic (congestive) and diastolic (congestive) heart failure Comment: ef of 25% (2) Hypotension Status: Acute (3) Hyponatremia Code(s): E87.1 - HYPO-OSMOLALITY AND HYPONATREMIA Status: Acute Comment: Improved, secondary to volume overload in context of CHF exacerbation (4) Paroxysmal a-fib Code(s): I48.0 - PAROXYSMAL ATRIAL FIBRILLATION Status: Chronic (5) Cardiomyopathy Code(s): I42.9 - CARDIOMYOPATHY, UNSPECIFIED Status: Chronic Qualifiers: Cardiomyopathy type: unspecified Qualified Code(s): I42.9 - Cardiomyopathy , unspecified (6) Inguinal hernia of left side without obstruction or gangrene Code(s): K40.90 - UNIL INGUINAL HERNIA, W/O OBST OR GANGR, NOT SPCF RECUR Status: Chronic (7) Non-compliance Code(s): Z91.19 - PATIENT'S NONCOMPLIANCE W OTH MEDICAL TREATMENT AND REGIMEN Status: Chronic - Plan noncompiance with diet, rec hospitalization for chf -: was npo for possible egd, wants to eat, has no dysphagia per pt -: start dobutamine with sbp of 90, cant diurese -: fluid restriction, cardio consult -: ?palliative care consult * . Review of Systems - Medications/Allergies Allergies/Adverse Reactions: Allergies Allergy/AdvReac Type Severity Reaction Status Date / Time aspirin Allergy Severe Verified 01/15/17 21:33 NSAIDS (Non-Steroidal Allergy Verified 01/15/17 21:33 Anti-Inflamma Medications: Current Medications Acetaminophen (Tylenol) 650 mg PO Q4H PRN PRN Reason: Headache/Fever or Pain Acetaminophen (Tylenol) 650 mg AK Q4H PRN PRN Reason: Headache/Fever or Pain Furosemide (Lasix) 40 mg SLOW IVP 0600,1400 ISAURA Last Admin: 01/16/17 05:29 Dose: 40 mg Dobutamine HCl/Dextrose (Dobutamine 500 Mg/250 Ml) 250 mls @ 11.294 mls/hr IVPB INF ISAURA; 5 MCG/KG/MIN PRN Reason: Protocol Ondansetron HCl (Zofran) 4 mg IVP Q6H PRN PRN Reason: Nausea/Vomiting
[2017-01-16] MEDS: DOBUTamine 500 mg/250 ml 250 ML IVPB SCH (12:26)
--- NOTE | 2017-01-16 13:46 | CON ---
NEPHROLOGY CONSULTATION NOTE DATE OF CONSULTATION: 01/16/2017 CONSULTING PHYSICIAN: Dr. Parson. REASON FOR CONSULTATION: Hyponatremia. REASON FOR ADMISSION: Weakness. HISTORY OF PRESENT ILLNESS: This is an 81-year-old white male with history of congestive heart fail ure with ejection fraction of around 20%, CVA and coronary artery disease, who came to the hospital with weakness and was found to have sodium of 180. Patient was recently discharged from the [facility]; he has advanced heart disease. He is not being able to eat well and has been only having drinks. No fever or chills. Patient is also having pain with his hernia. He is having GI and cardiac amy luation. He denies any chest pain or palpitation. No shortness of breath. His sodium level improv ed from 119-121 this morning with IV Lasix. He was on 40 mg IV b.i.d. PAST MEDICAL HISTORY: Positive for congestive heart failure, CVA, hyponatremia, coronary artery dis ease and DVT. PAST SURGICAL HISTORY: Cholecystectomy, right endarterectomy, right shoulder surgery and right knee surgery. HOME MEDICATIONS: Carvedilol, Lasix and Flomax. ALLERGIES: NSAIDs and ASPIRIN. SOCIAL HISTORY: No smoking, alcohol or illicit drug abuse. FAMILY HISTORY: Positive for heart disease. REVIEW OF SYSTEMS: The following complete review of systems was negative, unless otherwise mentione d in the HPI or below: Constitutional: Weight loss or gain, ability to conduct usual activities. Skin: Rash, itching. Eyes: Double vision, pain. ENT/Mouth: Nose bleeding, neck stiffness, pain, tenderness. Cardiovascular: Palpitations, dyspnea on exertion, orthopnea. Respiratory: Shortness of breath, wheezing, cough, hemoptysis, fever or night sweats. Gastrointestinal: Poor appetite, abdominal pain, heartburn, nausea, vomiting, constipation, or diar quirino. Genitourinary: Urgency, frequency, dysuria, nocturia. Musculoskeletal: Pain, swelling. Neurologic/Psychiatric: Anxiety, depression. Allergy/Immunologic: Skin rash, bleeding tendency. PHYSICAL EXAMINATION: GENERAL: This is a thin-built male in no apparent distress. VITAL SIGNS: Temperature is 97, pulse 64, respiratory rate 16 and blood pressure 104/59. HEENT: Atraumatic and normocephalic. Oral mucosa is moist. NECK: Supple. CARDIOVASCULAR: S1 and S2 heard. Rate and rhythm regular. RESPIRATORY: Clear. GI: Abdomen is soft. MUSCULOSKELETAL: 1+ edema. DERMATOLOGIC: No skin rash. NEUROLOGIC: Alert and awake. PSYCHIATRIC: Mood and affect normal. LABORATORY DATA: Potassium is 4.0, sodium is 121 and creatinine is 1.03. ASSESSMENT AND PLAN: 1. Hyponatremia, most likely from fluid intake and also cardiorenal syndrome. Agree with diuresis as tolerated. The patient's blood pressure remains low, not able to diurese and plan is to start on dobutamine and monitor. Continue on fluid restriction for now. 2. Acute kidney injury, stable. 3. Hypochloremia. 4. Edema. 5. Cardiorenal syndrome. 6. Anemia, mild. 7. Hypotension. Plan is to start on dobutamine. Continue dobutamine and diuresis as tolerated. Limit fluid intake to 1 to 1.2 liters and monitor so dium. We will follow. Thank you for the consult.
--- NOTE | 2017-01-16 20:19 | CON ---
DATE OF ADMISSION: 01/15/2017 DATE OF CONSULTATION: 01/16/2017 INDICATION FOR CONSULTATION: An 81-year-old patient with CHF exacerbation. HISTORY OF PRESENT ILLNESS: This is an 81-year-old gentleman who has had a history of both systolic and diastolic dysfunction who was in the hospital just recently, underwent cardiac catheterization in 01/06/2017 and was found to have 1 vessel coronary artery disease, dictated results are not yet a vailable of uncertain as to which vessel was involved, but the patient said it was significant enoug h that he would have been at higher risk to undergo a hernia repair. We will need to discuss this w ith Dr. Nunes when he returns tomorrow. The patient needs to undergo a left inguinal hernia rep air. 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 Ejection fraction about 25%. He a lso has restrictive pattern on his echocardiogram indicative of diastolic dysfunction, which was rat her severe. He had an echocardiogram performed, which showed severe decrease in left ventricular sy stolic function as well as moderate to severe mitral valve regurgitation, left atrial dilatation. A t this time, he denied any chest pain or shortness of breath. He was at home and said he just could not eat or sleep and has had a bowel movement 2 weeks; however, he has not been eating and then thi s would not be surprising he would not have a bowel movement, but he has been drinking fluids when herber redd arrived today, yesterday he was found to be significantly hyponatremic with sodium of 118 to 119. Since that time, he has been given diuretics and the sodium is actually increased with the diuretic s at 121. His I's and O's, he is actually negative only 170 mL today and yesterday was positive 320 , may be best to actually fluid restrict him. PAST MEDICAL HISTORY: Significant for single vessel coronary artery disease, cardiomyopathy, hypona tremia, congestive heart failure, history of hypertension in the past and also noncompliance with me dications or with followups. He has also had a cholecystectomy and he has had a right endarterectom y performed as well as right shoulder surgery and right knee surgery. ALLERGIES: He is allergic to ASPIRIN and NONSTEROIDAL. SOCIAL HISTORY: He denies any alcohol or tobacco abuse. MEDICATIONS AT HOME: Included Coreg, Lasix, and Flomax. FAMILY HISTORY: Apparently, he is positive for some history of coronary artery disease. REVIEW OF SYSTEMS: Unremarkable for the 12-point review of systems except for what is noted above w ith a decrease in appetite, unable to sleep and also not having any bowel movements. He denied any chest pain. He denied any shortness of breath. He had no lower extremity edema. No nausea or vomi ting. PHYSICAL EXAMINATION: GENERAL: Reveals an elderly gentleman. VITAL SIGNS: Blood pressure 120/60, heart rate is 81 and EKG shows normal sinus rhythm, respiratory rate 17, and he is afebrile. HEENT: Shows head to be normocephalic and atraumatic. He does have soft carotid bruits noted. The re is no JVD. The thyroid is not enlarged. Oral mucosa was pink and moist. CHEST: Clear to auscultation. I did not hear any rales, rhonchi or wheezing. CARDIOVASCULAR: Exam reveals a regular rate and rhythm at this time with occasional ectopy. He has a systolic murmur at the apex compatible with his mitral valve regurgitation. ABDOMEN: Soft and nontender. Positive bowel sounds are present. I did not palpate any masses. EXTREMITIES: Showed no clubbing, cyanosis or edema. Pedal pulses are present. NEUROLOGIC: The patient appears to be intact. SKIN: Warm and dry. IMAGING: EKG shows a normal sinus rhythm with evidence of left ventricular hypertrophy in an incomp lete left bundle branch block. LABORATORY DATA: Shows a creatinine 1.03. Sodium today is 121. WBC is 6.2, hemoglobin 12.2. His LDL level was 55. IMPRESSION: 1. Hyponatremia with a history of diastolic dysfunction as well as systolic dysfunction with severe decrease in left ventricular systolic function, ejection fraction of 25% with single vessel coronar y artery disease. Apparently in the past, he has refused to undergo an AICD or a LifeVest. We will continue to follow his congestive heart failure. He has been seen by Nephrology and most likely he will need to have volume restriction, fluid restriction in order to allow the sodium to increase sl owly. 2. Coronary artery disease, 1 vessel disease. We will discuss this with Dr. Nunes when he sees the patient tomorrow as to exactly with the extent of his coronary artery disease. 3. History of noncompliance with medical management and apparently with following directions brittany bustos, but he does have some noncompliance with followups in his medications. At this time, his overa ll cardiac status despite having the cardiomyopathy as well as systolic and diastolic dysfunction. He remains relatively stable.
--- NOTE | 2017-01-16 23:10 | CON ---
DATE OF CONSULTATION: 01/16/2017 REASON FOR CONSULTATION: Dysphagia. HISTORY OF PRESENT ILLNESS: Mr. Cline is a pleasant 81-year-old gentleman who came to the hospital because he states he could not swallow. He states that for about the past 2-3 days, he is not able to swallow solids. He had been able to swallow liquids okay, but apparently, on admission, he had b een throwing up and his daughter who is here with him today states that maybe this has been going on for about 3 weeks. He reports that basically he just could not get food to get out of his mouth an d felt this would not go down, could not transfer from his mouth down. He has had no history of parvin us obstruction. Overall, he has been having problems with constipation for the last month or so. H e states this all started in October whenever he coughed so hard he developed a left inguinal hernia. There was some discussion of repairing this, but he had a cardiac catheterization recently apparalexus meredith with his agricultural research engineer who only needed 2 stents, but that was going to be done after his surgery, although there are no plans for doing any surgery. His constipation was getting worse. He saw Dr. Jean-Baptiste last week, and he was started on some laxatives with stool softener, MiraLax, and his bowel s have been moving a little better recently. The daughter notes that her other sister had given him suppositories which seemed to help. There has been a remote history of endoscopy in [place] more than 10 years ago. He reports he had a normal colonoscopy. Daughter states he has had some ulcers and he has had a history of ulcers throu ghout his life, but more recently, he has been on a PPI maintenance therapy. He has lost about 10 p ounds according to his and her report. Today, he ate half a sandwich with no problem and tolerated liquids with no problems. There is no h istory of coughing or choking with swallowing or history of graveley or wet voice after swallowing. He has had no history of pneumonia. There has apparently been a history of light stroke with left- sided weakness in the past. He does complain of left inguinal pain and wants to get his hernia fixe d. He has had some vague nausea. In the emergency room, he was found to be profoundly hyponatremic with a sodium of 118, potassium 4.7, BUN and creatinine of 11 and 1, glucose is 118. Liver functio n tests were normal. Albumin was 3.6. BNP was 2363; this is the highest it has ever been and when he was last here on 01/04/2017, it was 1690. Troponin was less than 0.01. TSH was 1.7 on 7. Lipase was 26 on 12/30/2016. White count 6.2, hemoglobin is 12.2, platelet count is 239. Urina lysis 01/04/2017 was normal. Urine osmolality 222, urine creatinine 36, urine sodium 50, urine pota ssium 20. Chest x-ray in the emergency room showed congestive heart failure with worsening pulmonar y edema. Echocardiogram 07/21/2016 showed an EF of 20%-25%. On 01/12/2017, he had a PIYUSH, EF 25%-30 %. REVIEW OF SYSTEMS: Constitutional: Anorexia, 10-pound weight loss, constipation, dysphagia is addr essed in the history above. Neurologic: No recent TIA or stroke symptoms. HEENT: Mouth: No oral ulcers or lesions, no sore throat. Cardiovascular: The patient denies any chest pain. Respirator y: Denies any shortness of breath. Denies any orthopnea. No cough. Extremities: No peripheral e deven. Genitourinary: No dysuria, frequency, or urgency. PAST MEDICAL HISTORY: Congestive heart failure with EF around 20%, prior CVA, coronary artery disea se, DVT in the right leg after knee surgery in the past. A history of biliary pancreatitis with neg ative IOC after laparoscopic cholecystectomy 08/2015 without medical history. PAST SURGICAL HISTORY: Previous cholecystectomy; remote history of upper and lower endoscopies, pos sible history of ulcer disease in the past; carotid endarterectomy; right shoulder surgery; right kn ee surgery. SOCIAL HISTORY: Negative for alcohol, drugs, or tobacco. FAMILY HISTORY: Negative for colorectal cancer or liver disease. ALLERGIES: ASPIRIN, NSAIDS, . MEDICATIONS AT HOME: Carvedilol, Lasix, Flomax. The patient's daughter also reports him taking John aLax, stool softeners, and a PPI from Dr. Jean-Baptiste. PRESENT MEDICATIONS: Tylenol, DuoNeb, Lasix, Zofran. PHYSICAL EXAMINATION: GENERAL: The patient is frail, elderly, is resting in bed. Hears well. He is alert and oriented a ll his life. His daughter notes he has been very confused today. VITAL SIGNS: Temperature is 97, pulse 67, blood pressure 94/52. LUNGS: Clear. CARDIAC: Heart is regular, without clicks or murmurs. ABDOMEN: Soft, nontender with positive bowel sounds. He has a left inguinal hernia, which is reduc ible. Review of past admission records from 01/04/2017 to 01/07/2017, his agricultural research engineer felt he was low ris k for cardiac complications, hernia repair. Although it is recommended he wait 3-4 weeks after his recent episode of acute heart failure before he proceeds with repair of that. He was also seen for hyponatremia last visit. This was felt to be related to his heart failure. It was felt that he had hypervolemic hyponatremia. ASSESSMENT: 1. Heart failure. 2. Hyponatremia, felt related to heart failure. 3. Exacerbation of heart failure with elevated BNP and a chest x-ray showing pulmonary vascular con gestion this admission. 4. Poor p.o. intake recently with some vague dysphagia, which seems more like a transfer issue of s olids from the mouth to the throat. It is unclear if this is related to prior cerebrovascular accid ent, dehydration, or esophageal dysmotility. He has a history of ulcers in the past. I feel he is at significant risk at this point in time for endoscopy with his exacerbation of heart failure this admission which at least by BNP and his x-ray worse than his last admission. RECOMMENDATIONS: 1. Upper GI with barium tablet. 2. PPI therapy. 3. We would await Cardiology evaluation before determining other interventions. 4. Inguinal hernia. This appears to be reducible, but it is bothering him. Again, we would defer to Cardiology whether he should have surgery for at this time, apparently with his acute heart failu re and questionable history of vascular disease, which he has been recommended to have stent in the past. We will defer that decision to them.
[2017-01-17] MEDS: DOBUTamine 500 mg/250 ml 250 ML IVPB SCH (04:51)
[2017-01-17] MEDS: Furosemide 40 MG/4 ML VIAL SLOW IVP SCH ×2 (04:53→14:27)
[2017-01-17 07:42] LABS: ALT (SGPT) 10 U/L (8-55); AST (SGOT) 12 U/L (5-34); Alkaline Phosphatase 68 U/L (40-150); Anion Gap 10 mmol/L (10-20); BUN (Urea Nitrogen) 11 mg/dL (8.4-25.7); Bilirubin, Total 0.5 mg/dL (0.2-1.2); Calc. Creatinine Clearance 52 mL/min (70-130); Carbon Dioxide 31 mmol/L (23-31); Chloride 88 mmol/L (98-107); Estimated GFR-MDRD 64; Globulin 2.7 g/dL (2.4-3.5); Protein, Total 5.9 g/dL (5.8-8.1)
[2017-01-17] MEDS ORDERED: Pantoprazole 40 MG VIAL IVP SCH (09:00)
--- NOTE | 2017-01-17 10:34 | PDOC.PN ---
- Subjective Encounter Start Date: 01/17/17 Encounter Start Time: 08:45 Subjective: no sob, feels better - Objective Resuscitation Status: Resuscitation Status FULL:Full Resuscitation MAR Reviewed: Yes Vital Signs & Weight: Vital Signs (12 hours) Temp Pulse Resp BP Pulse Ox 01/17/17 10:01 97.9 F 95 16 99/58 L 100 01/17/17 10:00 97.9 F 95 16 100 01/17/17 05:01 93 20 107/48 L 96 01/17/17 04:00 98.4 F 82 20 93/57 L 94 L 01/17/17 03:58 96 01/17/17 00:00 96.3 F L 88 20 104/55 L 95 Weight Weight 158 lb 1.6 oz I&O: 01/16/17 01/17/17 01/18/17 06:59 06:59 06:59 Intake Total 320 1432 Output Total 1920 Balance 320 -488 Result Diagrams: 01/16/17 05:28 01/17/17 04:59 Phys Exam - Physical Examination HEENT: PERRLA, moist MMs Neck: no JVD, supple Respiratory: no wheezing, no rales Cardiovascular: RRR, no significant murmur Gastrointestinal: soft, non-tender, positive bowel sounds Musculoskeletal: no edema, pulses present Neurological: non-focal, moves all 4 limbs Psychiatric: A&O x 3 Dx/Plan (1) CHF exacerbation Code(s): I50.9 - HEART FAILURE, UNSPECIFIED Status: Acute Qualifiers: Congestive heart failure type: combined Qualified Code(s): I50.43 - Acute on chronic combined systolic (congestive) and diastolic (congestive) heart failure Comment: ef of 25% (2) Hypotension Status: Resolved (3) Hyponatremia Code(s): E87.1 - HYPO-OSMOLALITY AND HYPONATREMIA Status: Acute Comment: Improved, secondary to volume overload in context of CHF exacerbation (4) Paroxysmal a-fib Code(s): I48.0 - PAROXYSMAL ATRIAL FIBRILLATION Status: Chronic (5) Cardiomyopathy Code(s): I42.9 - CARDIOMYOPATHY, UNSPECIFIED Status: Chronic Qualifiers: Cardiomyopathy type: unspecified Qualified Code(s): I42.9 - Cardiomyopathy , unspecified (6) Inguinal hernia of left side without obstruction or gangrene Code(s): K40.90 - UNIL INGUINAL HERNIA, W/O OBST OR GANGR, NOT SPCF RECUR Status: Chronic (7) Non-compliance Code(s): Z91.19 - PATIENT'S NONCOMPLIANCE W OTH MEDICAL TREATMENT AND REGIMEN Status: Chronic - Plan for barium swallow today -: gentle diuresis plus dobutamine -: is noncompliant with diet -: sodium around 125 -: to amb in hallway as tolerated * . Review of Systems - Medications/Allergies Allergies/Adverse Reactions: Allergies Allergy/AdvReac Type Severity Reaction Status Date / Time aspirin Allergy Severe Verified 01/15/17 21:33 NSAIDS (Non-Steroidal Allergy Verified 01/15/17 21:33 Anti-Inflamma Medications: Current Medications Acetaminophen (Tylenol) 650 mg PO Q4H PRN PRN Reason: Headache/Fever or Pain Acetaminophen (Tylenol) 650 mg TX Q4H PRN PRN Reason: Headache/Fever or Pain Furosemide (Lasix) 40 mg SLOW IVP 0600,1400 [facility] Last Admin: 01/17/17 04:53 Dose: 40 mg Dobutamine HCl/Dextrose (Dobutamine 500 Mg/250 Ml) 250 mls @ 11.294 mls/hr IVPB INF ISAURA; 5 MCG/KG/MIN PRN Reason: Protocol Last Admin: 01/17/17 04:51 Dose: 250 mls Ondansetron HCl (Zofran) 4 mg IVP Q6H PRN PRN Reason: Nausea/Vomiting Pantoprazole Sodium (Protonix) 40 mg PO DAILY [facility] Last Admin: 01/17/17 10:02 Dose: 40 mg Pantoprazole Sodium (Protonix) 40 mg IVP DAILY [facility] Last Admin: 01/17/17 10:02 Dose: Not Given
--- NOTE | 2017-01-17 10:55 | PRG ---
DATE OF SERVICE: 01/17/2017 SUBJECTIVE: Patient was seen and examined at bedside and overnight events noted. Patient denies an y shortness of breath or chest pain or palpitation. No history of nausea or vomiting or diarrhea or fever or chills or cramps. OBJECTIVE: GENERAL: This is a thin well-built white male in no apparent distress. VITAL SIGNS: Temperature 97.9, pulse 94, respirations 16, blood pressure 107/48. HEENT: Atraumatic, normocephalic. Oral mucosa is moist. NECK: Supple. CARDIOVASCULAR: S1, S2 heard. Rate and rhythm regular. RESPIRATORY: Clear to auscultation. GASTROINTESTINAL: Abdomen is soft. MUSCULOSKELETAL: No tenderness, no edema. DERMATOLOGIC: No skin rash. NEUROLOGIC: Alert and awake and oriented x3. No focal neurologic deficits. Moving all the extremi ties. PSYCHIATRIC: Mood and affect normal. LABORATORY DATA: Sodium was 125, creatinine is 1.1. ASSESSMENT AND PLAN: 1. Hyponatremia secondary to fluid overload, currently better. Sodium is better from 180-125 with fluid restriction and diuresis. Continue diuresis as tolerated. 2. Hypertension. 3. Cardiorenal syndrome with severe cardiomyopathy with low ejection fraction. 4. Edema. 5. Cardiorenal syndrome. 6. Continue current management. Sodium is getting better.
--- NOTE | 2017-01-17 11:43 | PRG ---
DATE OF SERVICE: 01/17/2017 Mr. Cline is feeling well. He states he had no problems swallowing with his upper GI. PHYSICAL EXAMINATION: VITAL SIGNS: Temperature is 97, pulse 95, blood pressure 99/58. ABDOMEN: Nontender. LABORATORY STUDIES: Sodium 125, potassium 3.8, BUN and creatinine are 11 and 1.1. LFTs normal. Barium swallow study, results pending. On my review plain films look grossly normal. ASSESSMENT: Resume diet, continue PPI and wait for upper GI results.
--- NOTE | 2017-01-17 14:00 | PRG ---
DATE OF SERVICE: 01/17/2017 HISTORY: Mr. Cline recently was admitted for decreased appetite, decreased p.o. intake and difficul ty sleeping. After multiple questions, Mr. Cline denied having shortness of breath, chest pain or p ressure, PND, orthopnea or other associated symptoms. PHYSICAL EXAMINATION: VITAL SIGNS: Blood pressure 107/58, pulse 82, temperature 97.9. LUNGS: Clear to auscultation. CARDIAC: Regular rate and rhythm. ABDOMEN: Soft, nontender, nondistended. EXTREMITIES: No edema. PERTINENT LABORATORY DATA: Hemoglobin 12.2. Sodium 119, which has increased to 125, troponin negat mariana. IMPRESSION: 1. Chronic systolic heart failure. 2. Coronary artery disease. 3. Hyponatremia. RECOMMENDATIONS: Hyponatremia appears to have improved. His decreased appetite may have been relat ed. It does not appear Mr. Cline was in clinical heart failure. His BNP was elevated. He is curre ntly on dobutamine, inotropic support. He is also on low dose Lasix. Mr. Cline may benefit from a biventricular ICD, but has been adamant against any type of device in the past. His main focus has been hernia repair and has been cleared. There has also been an issue with compliance. Otherwise, I have no further recommendations.
--- NOTE | 2017-01-17 15:44 | RAD ---
DOUBLE CONTRAST BARIUM ESOPHAGRAM: CLINICAL HISTORY: Dysphagia with early satiety. FINDINGS: Double-contrast esophagram performed with the use of effervescent crystals thickened in barium and 1 2.5 barium tablet. FINDINGS: The patient was unable to tolerate the effervescent crystals and, therefore, incomplete gaseous dist ention of the imaged aerodigestive tract occurred during the evaluation. There is no evidence of a focal intrinsic mass effect or constricting lesion. Free passage of liquid barium as well as a 12.5 mm barium tablet through the esophagus and into the stomach. No evidence of gastroesophageal reflu x or significant hiatal hernia. Contrast-opacified portions of the stomach are grossly unremarkable . IMPRESSION: 1. Appropriate passage of liquid barium as well as 12.5 mm barium tablet through the esophagus. 2. Limited evaluation as the patient was unable to tolerate the gaseous distention of the effervesc ent crystals. 3. No definitive intrinsic mass effect or obvious constricting lesion evident. POS: JUAN
[2017-01-17] MEDS: Temazepam 15 MG CAP PO PRN (20:44)
[2017-01-18] MEDS: DOBUTamine 500 mg/250 ml 250 ML IVPB SCH (03:09)
[2017-01-18] MEDS ORDERED: Sodium Chloride 0.9% 10 ML ONE ×2 (03:14→05:31)
[2017-01-18 05:13] LABS: #Eosinphils 0.5 thou/uL (0.0-0.7); #Lymphocytes 0.6 thou/uL (1.20-3.40); #Monocytes 0.9 thou/uL (0.11-0.59); #Neutrophils 4.5 thou/uL (1.40-6.50); %Basophils 0.7 % (0.0-1.0); %Eosinophils 7.7 % (0.0-10.0); %Lymphocytes 9.2 % (21.0-51.0); %Monocytes 14.2 % (0.0-10.0); Hematocrit 41.5 % (42.0-52.0); Mean Platelet Volume 6.5 fL (7.4-10.4); Red Blood Cell (RBC) Count 4.18 mill/uL (4.70-6.10); White Blood Cell (WBC) Count 6.6 thou/uL (4.8-10.8)
[2017-01-18] MEDS: Furosemide 40 MG/4 ML VIAL SLOW IVP SCH ×2 (05:36→14:07)
[2017-01-18 05:37] LABS: ALT (SGPT) 9 U/L (8-55); AST (SGOT) 11 U/L (5-34); Alkaline Phosphatase 71 U/L (40-150); Anion Gap 12 mmol/L (10-20); BUN (Urea Nitrogen) 12 mg/dL (8.4-25.7); Bilirubin, Total 0.7 mg/dL (0.2-1.2); Calc. Creatinine Clearance 47 mL/min (70-130); Carbon Dioxide 30 mmol/L (23-31); Chloride 90 mmol/L (98-107); Estimated GFR-MDRD 58; Globulin 2.9 g/dL (2.4-3.5); Protein, Total 6.1 g/dL (5.8-8.1)
[2017-01-18] MEDS ORDERED: DOBUTamine 500 mg/250 ml 250 ML IVPB SCH (07:08)
--- NOTE | 2017-01-18 08:27 | PRG ---
DATE OF SERVICE: 01/18/2014 SUBJECTIVE: Mr. Cline's status is stable. He continues to complain of decreased appetite. No naus ea present. No shortness of breath, chest pain or pressure, PND, orthopnea noted. He is on 5 mcg o f dobutamine. PHYSICAL EXAMINATION: VITAL SIGNS: Blood pressure 103/52, pulse 96, temperature 97.5. LUNGS: Clear to auscultation. CARDIAC: Regular rate and rhythm. ABDOMEN: Soft, nontender, nondistended. EXTREMITIES: No edema. IMPRESSION: 1. Acute on chronic systolic heart failure. 2. Hyponatremia. RECOMMENDATIONS: 1. Decrease dobutamine to 2.5 mcg in hopes of discontinuing this afternoon. 2. Add beta lucille therapy in a.m. in addition to KALPANA inhibitor therapy if blood pressure tolerate s. 3. I am unsure whether his true presentation was from systolic heart failure or from hyponatremia. No anginal type symptoms noted.
--- NOTE | 2017-01-18 09:18 | PDOC.PN ---
- Subjective Encounter Start Date: 01/18/17 Encounter Start Time: 09:12 Subjective: no sob, chest pain - Objective Resuscitation Status: Resuscitation Status FULL:Full Resuscitation MAR Reviewed: Yes Vital Signs & Weight: Vital Signs (12 hours) Temp Pulse Resp BP Pulse Ox 01/18/17 05:35 96 16 103/52 L 01/18/17 04:00 97.5 F L 88 18 104/60 92 L 01/17/17 23:44 98.8 F 95 18 101/50 L 94 L Weight Admit Weight 166 lb Weight 154 lb 9.6 oz I&O: 01/17/17 01/18/17 01/19/17 06:59 06:59 06:59 Intake Total 1432 1189.6 Output Total 1920 1575 Balance -488 -385.4 Result Diagrams: 01/18/17 04:59 01/18/17 04:59 Phys Exam - Physical Examination Constitutional: NAD Neck: no JVD Respiratory: clear to auscultation bilateral Cardiovascular: RRR 2/6 sys murmur Gastrointestinal: soft, non-tender, positive bowel sounds Musculoskeletal: pulses present Dx/Plan (1) Acute on chronic systolic congestive heart failure, NYHA class 2 Code(s): I50.23 - ACUTE ON CHRONIC SYSTOLIC (CONGESTIVE) HEART FAILURE Status : Acute Comment: EF 20-25%, continue Dobutamine gtt for renal perfusion and diuresis, plan for [facility] to define coronary anatomy (2) Hyponatremia Code(s): E87.1 - HYPO-OSMOLALITY AND HYPONATREMIA Status: Acute Comment: Improved, secondary to volume overload in context of CHF exacerbation (3) NSVT (nonsustained ventricular tachycardia) Code(s): I47.2 - VENTRICULAR TACHYCARDIA Status: Acute (4) Cardiomyopathy Code(s): I42.9 - CARDIOMYOPATHY, UNSPECIFIED Status: Chronic Qualifiers: Cardiomyopathy type: unspecified Qualified Code(s): I42.9 - Cardiomyopathy , unspecified (5) Non-compliance Code(s): Z91.19 - PATIENT'S NONCOMPLIANCE W OTH MEDICAL TREATMENT AND REGIMEN Status: Chronic (6) Paroxysmal a-fib Code(s): I48.0 - PAROXYSMAL ATRIAL FIBRILLATION Status: Chronic - Plan dobutamine being tapered, cont iv lasix -: discuss with Dr Nunes * .
--- NOTE | 2017-01-18 10:44 | PRG ---
DATE OF SERVICE: 01/18/2017 SUBJECTIVE: Patient was seen and examined at bedside and overnight events noted. Patient denies an y shortness of breath or chest pain or palpitation. No history of nausea or vomiting or diarrhea or fever or chills or cramps. OBJECTIVE: GENERAL: This is a thin-built white male in no apparent distress. VITAL SIGNS: Temperature 97.4, pulse 100, respiratory rate 18 and blood pressure 105/60. HEENT: Atraumatic and normocephalic. Oral mucosa is moist. NECK: Supple. CARDIOVASCULAR: S1 and S2 heard. Rate and rhythm regular. RESPIRATORY: Clear to auscultation. GASTROINTESTINAL: Abdomen is soft. MUSCULOSKELETAL: No tenderness. No edema. DERMATOLOGIC: No skin rash. NEUROLOGIC: Alert, awake and oriented x3. No focal neurologic deficits. Moving all the extremitie s. PSYCHIATRIC: Mood and affect normal. LABORATORY DATA: Sodium is 128, potassium is 4.2 and creatinine is 1.1. ASSESSMENT AND PLAN: 1. Hyponatremia, most likely from hypervolemia. Sodium level is getting better. Continue fluid re striction and diuretics. 2. Cardiorenal syndrome. 3. Hypertension, stable. 4. Edema, stable. Continue on Lasix. 5. Currently on dobutamine. Follow up with Cardiology for further recommendation. Sodium level is adequately corrected and continue on fluid restriction and diuretics as tolerated. Follow up with Cardiology for further plans.
[2017-01-18] MEDS ORDERED: Polyethylene Glycol 3350 17 GM Packet PO SCH (14:30)
[2017-01-18] MEDS ORDERED: Bisacodyl 10 MG SUPP PR SCH (20:45)
[2017-01-19] MEDS: Temazepam 15 MG CAP PO PRN (00:06)
[2017-01-19] MEDS: Polyethylene Glycol 3350 17 GM Packet PO SCH (08:11)
--- NOTE | 2017-01-19 08:43 | PDOC.PN ---
- Subjective Encounter Start Date: 01/19/17 Encounter Start Time: 08:40 Subjective: no chest pain or sob - Objective Resuscitation Status: Resuscitation Status FULL:Full Resuscitation MAR Reviewed: Yes Vital Signs & Weight: Vital Signs (12 hours) Temp Pulse Resp BP Pulse Ox 01/19/17 07:44 97.7 F 72 20 106/60 95 01/19/17 05:52 93 20 107/66 01/19/17 04:00 97.5 F L 95 18 107/62 96 01/19/17 00:00 97.9 F 83 20 106/60 97 Weight Admit Weight 166 lb Weight 151 lb 14.4 oz I&O: 01/18/17 01/19/17 01/20/17 06:59 06:59 06:59 Intake Total 1189.6 1386 Output Total 1575 1425 Balance -385.4 -39 Result Diagrams: 01/18/17 04:59 01/18/17 04:59 Phys Exam - Physical Examination Constitutional: NAD Neck: no JVD Respiratory: clear to auscultation bilateral Cardiovascular: no significant murmur, irregular Gastrointestinal: soft, positive bowel sounds Musculoskeletal: no edema, pulses present Dx/Plan (1) Acute on chronic systolic congestive heart failure, NYHA class 2 Code(s): I50.23 - ACUTE ON CHRONIC SYSTOLIC (CONGESTIVE) HEART FAILURE Status : Acute Comment: EF 20-25%, continue Dobutamine gtt for renal perfusion and diuresis, plan for [facility] to define coronary anatomy (2) Hyponatremia Code(s): E87.1 - HYPO-OSMOLALITY AND HYPONATREMIA Status: Acute Comment: Improved, secondary to volume overload in context of CHF exacerbation (3) NSVT (nonsustained ventricular tachycardia) Code(s): I47.2 - VENTRICULAR TACHYCARDIA Status: Acute (4) Cardiomyopathy Code(s): I42.9 - CARDIOMYOPATHY, UNSPECIFIED Status: Chronic Qualifiers: Cardiomyopathy type: unspecified Qualified Code(s): I42.9 - Cardiomyopathy , unspecified (5) Non-compliance Code(s): Z91.19 - PATIENT'S NONCOMPLIANCE W OTH MEDICAL TREATMENT AND REGIMEN Status: Chronic (6) Paroxysmal a-fib Code(s): I48.0 - PAROXYSMAL ATRIAL FIBRILLATION Status: Chronic - Plan still on dobutamine, iv lasix- will discuss with cardiology * .
[2017-01-19 08:46] LABS: Anion Gap 11 mmol/L (10-20); BUN (Urea Nitrogen) 13 mg/dL (8.4-25.7); Calc. Creatinine Clearance 48 mL/min (70-130); Calcium 9.4 mg/dL (7.8-10.44); Carbon Dioxide 35 mmol/L (23-31); Chloride 89 mmol/L (98-107); Estimated GFR-MDRD 61
--- NOTE | 2017-01-19 13:32 | PRG ---
DATE OF SERVICE: 01/19/2017 HISTORY OF PRESENT ILLNESS: Mr. Cline states he is doing much better today. He is not eating. He h ad had a significant decrease appetite. No chest pain, pressure, shortness of breath or other associ ated symptoms present. PHYSICAL EXAMINATION: VITAL SIGNS: Blood pressure 106/60, pulse 70, temperature 97.7. LUNGS: Clear to auscultation. CARDIAC: Regular rate and rhythm. ABDOMEN: Soft, nontender, nondistended. EXTREMITIES: No edema. IMPRESSION: 1. Acute on chronic systolic heart failure. 2. Coronary artery disease. 3. Decreased appetite. RECOMMENDATIONS: 1. Stop dobutamine. 2. Add low dose lisinopril. 3. Added Coreg 3.25 1 p.o. b.i.d. in a.m. 4. If stable it would be okay from my standpoint to discharge home in a.m.
[2017-01-19] MEDS: Furosemide 40 MG/4 ML VIAL SLOW IVP SCH ×2 (13:44→19:11)
--- NOTE | 2017-01-19 21:51 | PRG ---
DATE OF SERVICE: 01/19/2017 SUBJECTIVE: Patient was seen and examined at bedside and overnight events noted. Patient denies any shortness of breath or chest pain or palpitation. No history of nausea or vomiting or diarrhea or fever or chill s or cramps. OBJECTIVE: GENERAL: This is a thin well-built white male in no apparent distress. VITAL SIGNS: Temperature 96, pulse 82, respiratory rate 20, blood pressure 98/54. HEENT: Atraumatic, normocephalic, Oral mucosa is moist. NECK: Supple. CARDIOVASCULAR: S1, S2 heard. Rate and rhythm regular. RESPIRATORY: Clear to auscultation. GASTROINTESTINAL: Abdomen is soft. MUSCULOSKELETAL: No tenderness. No edema. DERMATOLOGIC: No skin rash. NEUROLOGIC: Alert and awake and oriented x3. No focal neurologic deficits. Moving all the extremit ies. PSYCHIATRIC: Mood and affect normal. LABORATORY DATA: Sodium is 131, BUN is 13, creatinine is 1.1. ASSESSMENT AND PLAN: 1. Hyponatremia. Sodium level is getting better. Continue to limit fluid intake. Continue on diur esis and cardiorenal syndrome as above. 2. Metabolic alkalosis, most likely from diuresis. 3. Edema, stable. 4. Hypertension, stable. 5. Sodium level continues to get better. Continue fluid restriction and diuresis if tolerated. 6. Blood pressure remains low. We will follow.
[2017-01-20] MEDS: Furosemide 40 MG/4 ML VIAL SLOW IVP SCH (06:25)
[2017-01-20] MEDS ORDERED: Bisacodyl 10 MG SUPP PR PRN (08:28)
--- NOTE | 2017-01-20 08:38 | PDOC.PN ---
- Subjective Encounter Start Date: 01/20/17 Encounter Start Time: 08:36 Subjective: pain left groin - Objective Resuscitation Status: Resuscitation Status FULL:Full Resuscitation MAR Reviewed: Yes Vital Signs & Weight: Vital Signs (12 hours) Temp Pulse Resp BP Pulse Ox 01/20/17 04:00 99.0 F 85 18 94/53 L 94 L 01/20/17 00:00 97.7 F 91 18 100/62 96 Weight Admit Weight 166 lb Weight 150 lb 8 oz I&O: 01/19/17 01/20/17 01/21/17 06:59 06:59 06:59 Intake Total 1386 64 Output Total 1425 525 Balance -39 -461 Result Diagrams: 01/18/17 04:59 01/19/17 08:17 Phys Exam - Physical Examination Constitutional: NAD Neck: no JVD Respiratory: clear to auscultation bilateral Cardiovascular: RRR Gastrointestinal: soft, non-tender, positive bowel sounds reducible left inguinal hernia Musculoskeletal: no edema Dx/Plan (1) Acute on chronic systolic congestive heart failure, NYHA class 2 Code(s): I50.23 - ACUTE ON CHRONIC SYSTOLIC (CONGESTIVE) HEART FAILURE Status : Acute Comment: EF 20-25%, continue Dobutamine gtt for renal perfusion and diuresis, plan for [facility] to define coronary anatomy (2) Hyponatremia Code(s): E87.1 - HYPO-OSMOLALITY AND HYPONATREMIA Status: Acute Comment: Improved, secondary to volume overload in context of CHF exacerbation (3) NSVT (nonsustained ventricular tachycardia) Code(s): I47.2 - VENTRICULAR TACHYCARDIA Status: Acute (4) Cardiomyopathy Code(s): I42.9 - CARDIOMYOPATHY, UNSPECIFIED Status: Chronic Qualifiers: Cardiomyopathy type: unspecified Qualified Code(s): I42.9 - Cardiomyopathy , unspecified (5) Non-compliance Code(s): Z91.19 - PATIENT'S NONCOMPLIANCE W OTH MEDICAL TREATMENT AND REGIMEN Status: Chronic (6) Paroxysmal a-fib Code(s): I48.0 - PAROXYSMAL ATRIAL FIBRILLATION Status: Chronic (7) Inguinal hernia of left side without obstruction or gangrene Code(s): K40.90 - UNIL INGUINAL HERNIA, W/O OBST OR GANGR, NOT SPCF RECUR Status: Chronic - Plan transition to po lasix, cont KALPANA, BP 90-100, ? of bblocker -: off dobatamine -: general surgery consult * .
[2017-01-20] MEDS: Lisinopril 2.5 MG TAB PO SCH (08:49)
[2017-01-20] MEDS: Polyethylene Glycol 3350 17 GM Packet PO SCH (08:49)
[2017-01-20] MEDS: Furosemide 40 MG TAB PO SCH ×2 (08:52→14:08)
[2017-01-20 09:11] LABS: Anion Gap 13 mmol/L (10-20); BUN (Urea Nitrogen) 18 mg/dL (8.4-25.7); Calc. Creatinine Clearance 42 mL/min (70-130); Calcium 9.8 mg/dL (7.8-10.44); Carbon Dioxide 32 mmol/L (23-31); Chloride 89 mmol/L (98-107); Estimated GFR-MDRD 53; Magnesium 2.1 mg/dL (1.6-2.6)
--- NOTE | 2017-01-20 14:52 | PRG ---
DATE OF SERVICE: 01/20/2017 SUBJECTIVE: Mr. Cline today is complaining of left groin pain. He has a hernia in that region. Fro m a CV standpoint, he appears stable. PHYSICAL EXAMINATION: VITAL SIGNS: Blood pressure 107/50, pulse 81, temperature 96.6. LUNGS: Clear to auscultation. HEART: Regular rate and rhythm. ABDOMEN: Soft, nontender, nondistended. EXTREMITIES: No edema. IMPRESSION: 1. Acute on chronic systolic heart failure. 2. Coronary artery disease. 3. Noncompliance. 4. Left inguinal hernia. RECOMMENDATIONS: Dr. Yuri Foster has been consulted. From a CV standpoint, it would be okay to p kelsey with surgery. No further recommendations done.
--- NOTE | 2017-01-20 16:19 | PRG ---
DATE OF SERVICE: 01/20/2017 GI FOLLOWUP SUBJECTIVE: Mr. Cline had a normal upper GI with barium tablet and barium swallow. He denies proble ms with swallowing or pain at this time. PHYSICAL EXAMINATION: VITAL SIGNS: Temperature is 97, pulse 81. ABDOMEN: Soft and nontender. He has a left inguinal hernia. LABORATORY DATA: White count 6.6, hemoglobin 13, and platelet count 256. ASSESSMENT: 1. Dysphagia. This seems to be a nonissue now. 2. Heart failure as per Cardiology. 3. Left inguinal hernia. This can be repaired once cleared from a Cardiology standpoint. I would d efer timing of this to Cardiology and General Surgery.
[2017-01-20] MEDS: Temazepam 15 MG CAP PO PRN (20:53)
--- NOTE | 2017-01-20 22:17 | CON ---
DATE OF CONSULTATION: 01/20/2017 CHIEF COMPLAINT: Painful left inguinal hernia. HISTORY OF PRESENT ILLNESS: The patient is an 81-year-old white male. He is known to myself from ch olecystectomy for pancreatitis in August of last year (2015). He recuperated uneventfully following hi s surgery and currently, he has no abdominal complaints. He has a history of noncompliance. He was admitted to the hospital on 01/15/2017 secondary to fluid overload and hyponatremia. This was felt t o be an exacerbation of his congestive heart failure. He has been seen in consultation by Gastroente rology (Dr. Romero), Nephrology (Dr. Beck), and Cardiology (followed by Dr. Nunes). He has been treated medically for his fluid overload and congestive heart failure. He was on dobutam ine until recently, but he is now off this and it is felt to be medically optimized by his cardiologi st. I spoke with Dr. Nunes regarding this today. In regards to his heart, he underwent cardiac catheterization recently. He does have narrowing of one of his coronary arteries at about 70%-80%. He will eventually require treatment of this but does not require emergent treatment and this does no t felt to be a contraindication to proceed with this surgery. He continues to complain on a daily basis of the pain with his left inguinal hernia. I was consulted regarding the options for treating this. PAST MEDICAL HISTORY: 1. History of pneumonia. 2. Cerebrovascular accident in 08/2012. 3. Gastroesophageal reflux disease. 4. Arthritis. 5. Congestive heart failure (ejection fraction of about 25%). 6. Coronary artery disease. PAST SURGICAL HISTORY: 1. Cholecystectomy in 2015. 2. Right carotid endarterectomy. 3. Right shoulder surgery. 4. Right knee surgery. 5. Nasal surgery. CURRENT MEDICATIONS: 1. Pantoprazole. 2. Carvedilol. 3. Lasix. 4. Flomax. ALLERGIES: ASPIRIN, LORATADINE, and NONSTEROIDAL MEDICATIONS. PERSONAL AND SOCIAL HISTORY: He is , has 6 children. He currently lives by himself next to o ne of his daughters. He formerly smoked but quit smoking over 30 years ago. He denies alcohol use. REVIEW OF SYSTEMS: A ten-system review is otherwise unremarkable. FAMILY HISTORY: Noncontributory. PHYSICAL EXAMINATION: VITAL SIGNS: Temperature is 96.2, pulse is 72, blood pressure is 92/54. GENERAL: He is a well-developed, well-nourished, tall, thin white male resting in bed in no acute di stress. He ambulates to the bathroom uneventfully. He is alert and oriented x3. HEAD, EYES, EARS, NOSE, AND THROAT: Unremarkable. NECK: Supple. LUNGS: Clear to auscultation bilaterally. CARDIAC: Regular rate and rhythm without murmur. ABDOMEN: Soft, nontender, nondistended. EXTREMITIES: Unremarkable. GENITOURINARY: He has normal male external genitalia. Testes descended bilaterally. He has a large visible and palpable left inguinal hernia. He has a smaller, but still palpable, right inguinal her bill. ASSESSMENT: The patient with bilateral inguinal hernias. The left hernia is markedly symptomatic. He is very anxious to proceed with repair as soon as possible and it is for this reason that his jeromy nary artery stenting has been put off. I recommend proceeding with bilateral inguinal hernia tomorro w. PLAN: I discussed options with him. Although he would be a reasonable candidate for a robotic bilat eral repair, given his history of urinary retention and his age, I think he would have a very high ri sk for this and he expressively tells me that he wants nothing to do with the Marin catheter. I woul d, therefore, recommend proceeding with an open bilateral inguinal hernia repair with mesh. I have d iscussed the operation in detail with the patient as well as potential risks. He understands and agr ees to the surgery at this time.
[2017-01-21] MEDS ORDERED: Lidocaine 2% Viscous Solution 10 ML, Aluminum & Magnesium Hydroxide 30 ML SSW SCH ×2 (00:30)
[2017-01-21 01:05] LABS: Troponin I 0.014 ng/mL (< 0.028)
[2017-01-21] MEDS ORDERED: Digoxin 0.5 MG/2 ML AMP ONE (01:52)
[2017-01-21] MEDS ORDERED: Digoxin 0.5 MG/2 ML AMP SLOW IVP SCH (02:30)
[2017-01-21 05:54] LABS: Troponin I 0.012 ng/mL (< 0.028)
--- NOTE | 2017-01-21 06:23 | PRG ---
DATE OF SERVICE: 01/20/2017 SUBJECTIVE: Patient was seen and examined at bedside and overnight events noted. Patient denies any shortness of breath or chest pain or palpitation. No history of nausea or vomiting or diarrhea or f ever or chills or cramps. OBJECTIVE: GENERAL: This is a well-built male in no apparent distress. VITAL SIGNS: Temperature 96.2, pulse 72, respiratory rate 18, blood pressure 92/54. HEENT: Atraumatic, normocephalic, oral mucosa is moist. NECK: Supple. CARDIOVASCULAR: S1, S2 heard, rate and rhythm regular. RESPIRATORY: Clear to auscultation. GASTROINTESTINAL: Abdomen is soft. MUSCULOSKELETAL: No tenderness, no edema. DERMATOLOGIC: No skin rash. NEUROLOGIC: Alert and awake and oriented x3, no focal neurologic deficits. Moving all the extremiti es. PSYCHIATRIC: Mood and affect normal. LABORATORY DATA: Sodium is 130, potassium is 4.1, BUN is 18, creatinine 1.29. ASSESSMENT AND PLAN: 1. Hyponatremia, most likely hypovolemic. Sodium level was getting better with IV hydration. Judi nue on fluid restriction. 2. Acute kidney injury . 3. Metabolic acidosis secondary to diuresis. 4. Hypertension, stable. Overall, plan is to limit fluid intake and monitor sodium level closely.
[2017-01-21] MEDS: Polyethylene Glycol 3350 17 GM Packet PO SCH (08:19)
--- NOTE | 2017-01-21 08:28 | PDOC.PN ---
- Subjective Encounter Start Date: 01/21/17 Encounter Start Time: 08:28 Subjective: planned surgery today, no sob, fever - Objective Resuscitation Status: Resuscitation Status FULL:Full Resuscitation MAR Reviewed: Yes Vital Signs & Weight: Vital Signs (12 hours) Temp Pulse Resp BP Pulse Ox 01/21/17 04:00 98.2 F 20 90/64 97 01/21/17 02:33 95 01/21/17 02:32 98 01/21/17 00:35 98 01/20/17 23:58 98.0 F 95 18 93 L Weight Admit Weight 166 lb Weight 150 lb 6.4 oz I&O: 01/20/17 01/21/17 01/22/17 06:59 06:59 06:59 Intake Total 64 930.25 Output Total 525 1525 Balance -461 -594.75 Result Diagrams: 01/18/17 04:59 01/20/17 08:40 Phys Exam - Physical Examination Constitutional: NAD Neck: no JVD Respiratory: clear to auscultation bilateral Cardiovascular: RRR Gastrointestinal: soft, positive bowel sounds Musculoskeletal: no edema Dx/Plan (1) Acute on chronic systolic congestive heart failure, NYHA class 2 Code(s): I50.23 - ACUTE ON CHRONIC SYSTOLIC (CONGESTIVE) HEART FAILURE Status : Acute Comment: EF 20-25%, continue Dobutamine gtt for renal perfusion and diuresis, plan for [facility] to define coronary anatomy (2) Hyponatremia Code(s): E87.1 - HYPO-OSMOLALITY AND HYPONATREMIA Status: Acute Comment: Improved, secondary to volume overload in context of CHF exacerbation (3) NSVT (nonsustained ventricular tachycardia) Code(s): I47.2 - VENTRICULAR TACHYCARDIA Status: Acute (4) Cardiomyopathy Code(s): I42.9 - CARDIOMYOPATHY, UNSPECIFIED Status: Chronic Qualifiers: Cardiomyopathy type: unspecified Qualified Code(s): I42.9 - Cardiomyopathy , unspecified (5) Non-compliance Code(s): Z91.19 - PATIENT'S NONCOMPLIANCE W OTH MEDICAL TREATMENT AND REGIMEN Status: Chronic (6) Paroxysmal a-fib Code(s): I48.0 - PAROXYSMAL ATRIAL FIBRILLATION Status: Chronic (7) Inguinal hernia of left side without obstruction or gangrene Code(s): K40.90 - UNIL INGUINAL HERNIA, W/O OBST OR GANGR, NOT SPCF RECUR Status: Chronic - Plan cont lasix, KALPANA, dig. FU post herniorhaphy * .
[2017-01-21] MEDS: Lisinopril 2.5 MG TAB PO SCH (08:52)
[2017-01-21] MEDS: Furosemide 40 MG TAB PO SCH ×2 (08:52→16:27)
[2017-01-21 09:51] LABS: Troponin I 0.015 ng/mL (< 0.028)
--- NOTE | 2017-01-21 10:15 | PRG ---
Patient Name: CELIA FRANK Date of service: 01/21/2017 Subjective: Patient was seen and examined at bedside and overnight events noted. Patient denies any shortness of breath or chest pain or palpitation. No history of nausea or vomiting or diarrhea or fever or chills or cramps. Objective: General: This is a well-built male in no apparent distress. Vital signs: Temperature 98.2, pulse 90, respiratory 20, blood pressure 90/64. HEENT: Atraumatic, normocephalic. Oral mucosa is moist. Neck: Supple. Cardiovascular: S1 S2 heard. Rate and rhythm regular. Respiratory: Clear to auscultation. Gastrointestinal: Abdomen is soft. Musculoskeletal: No tenderness. No edema. Dermatologic: No skin rash. Neurologic: Alert and awake and oriented X3. No focal neurologic deficits. Moving all the extremities. Psychiatric: Mood and affect normal. LABORATORY DATA: Not done today. ASSESSMENT AND PLAN: 1. Hyponatremia. Sodium stable. Continue fluid restriction. The patient is to have surgery today and will have cautious monitoring of sodium perioperatively. Avoid free water with IV fluids. 2. Acute kidney injury, stable. 3. Cardiorenal syndrome - with poor EF. f/u with cardiology. 4. Hypotension. 5. Metabolic alkalosis secondary to diuretics. 6. Edema, controlled. 7. Mild anemia. Plan is to monitor sodium closely. Surgery today for hernia repair. INDY
--- NOTE | 2017-01-21 14:01 | RAD ---
PORTABLE CHEST: HISTORY: Preop low blood pressure. COMPARISON: 01/15/17 study. FINDINGS: Heart size is enlarged. There is atherosclerotic change of the aorta. The pleural and parenchymal c hanges in the left base are less prominent than on the prior examination. No new process. IMPRESSION: 1. Decreasing left-sided effusion. 2. Mild cardiomegaly. POS: [facility]
[2017-01-21 14:11] LABS: Oxyhemoglobin 93.8 % (94.0-97.0); Sodium 131 mmol/L (135-148)
[2017-01-21 14:12] LABS: Mode 2LNC
--- NOTE | 2017-01-21 16:11 | PRG ---
DATE OF SERVICE: 01/21/2017 HISTORY OF PRESENT ILLNESS: Mr. Cline was scheduled for a bilateral inguinal hernia repair today. I had spoken with his city carrier, Dr. Nunes, who felt that he was a reasonable candidate to proc eed with surgery today. He had appropriately stabilized following his episode of exacerbation of con gestive heart failure and fluid overload. Upon arrival here to the preop surgical holding area, he was noted to be significantly hypotensive wi th systolic pressures in the 60s and low 70s. He was gently transfused with crystalloid and albumin and well-being watched this for an hour and a half. His pressures never went up higher than the 70s systolic. Anesthesiology had already placed an arterial line in preparation for his surgery. Anesthesiology felt that the patient's hypotension in light of his other risk factors made him an anita ropriate candidate for proceeding with an elective surgery and I agreed with this. This surgery for today will therefore be canceled. It is our suspicion that he is now hypovolemic after fluid restric tion and diuresis. I have spoken with his current hospitalist, Dr. Nagy, who requested that he return to the telemetry floor. His arterial catheter will therefore be removed and he will be returned to telemetry. Furthe r orders will be per Dr. Nagy and the [facility] Hospitalist team. I will reschedule this patient's surg sita for Tuesday (01/25/2017). If he is still an inpatient and felt to be stable from at that time, t aide I would be happy to proceed as an inpatient, otherwise if he is discharged, I would be happy to p kelsey with bring him in for surgery even though there is a reasonable chance that he would be admitt ed for observation after the surgery that night. Either way, his surgery will be rescheduled for Tue the . He may be discharged at any time per the Hospitalist and Cardiology physicians.
--- NOTE | 2017-01-21 16:30 | PDOC.EVN ---
Event Note - Event Note Event Note: surgery cancelled due to BP. BP sys 80-90, no orthstasis. best option is DC if possible- FU with Dr byrd about surgery as outpt.
[2017-01-22 05:39] LABS: Anion Gap 10 mmol/L (10-20); BUN (Urea Nitrogen) 25 mg/dL (8.4-25.7); Calc. Creatinine Clearance 44 mL/min (70-130); Calcium 9.3 mg/dL (7.8-10.44); Carbon Dioxide 33 mmol/L (23-31); Chloride 92 mmol/L (98-107); Estimated GFR-MDRD 54
[2017-01-22] MEDS: Furosemide 40 MG TAB PO SCH (09:27)
[2017-01-22] MEDS: Polyethylene Glycol 3350 17 GM Packet PO SCH (09:28)
[2017-01-22] MEDS: Lisinopril 2.5 MG TAB PO SCH (09:32)
--- NOTE | 2017-01-22 10:03 | EKG ---
Test Reason : CHEST PAIN Blood Pressure : / mmHG Vent. Rate : 105 BPM Atrial Rate : 078 BPM P-R Int : 000 ms QRS Dur : 128 ms QT Int : 388 ms P-R-T Axes : 000 -21 152 degrees QTc Int : 512 ms Atrial fibrillation with rapid ventricular response with premature ventricular or aberrantly conducte d complexes Left ventricular hypertrophy with QRS widening T wave abnormality, consider lateral ischemia or digitalis effect Abnormal ECG When compared with ECG of 15-JAN-2017 15:32, (Unconfirmed) Atrial fibrillation has replaced Sinus rhythm Confirmed by ATILIO RECINOS, DR. Hua ([id number]) on 01/22/2017 10:02:45 AM Referred By: GUILLERMO Confirmed By:DR. Javid TRIMBLE MD
--- NOTE | 2017-01-22 10:16 | PRG ---
DATE OF SERVICE: 01/22/2017 SUBJECTIVE: Mr. Cline is up walking in the halls. He feels okay. He was taken to the operating area where the preoperative evaluation here yesterday, his blood pressu re dropped in the 60-70 mm systolic range even before the surgery. Therefore, the surgery could not be done. He was given albumin, but the blood pressure was not adequate. PHYSICAL EXAMINATION: VITAL SIGNS: Today's blood pressure is 88/60, pulse 84. LUNGS: Clear. CARDIAC: Normal S1 and S2. ABDOMEN: Soft, nontender. EXTREMITIES: There is no edema. ASSESSMENT: 1. Congestive heart failure, may be somewhat volume depleted. 2. Hypotension. 3. Inguinal hernia which they have to repair. PLAN: 1. Stop furosemide at this time. 2. Hold lisinopril. 3. Hopefully, the blood pressure will be adequate to proceed to the surgical therapy and is tentativ evan planned for Tuesday.
[2017-01-22] MEDS: Guaifenesin DM 100-10/5 ML UDCUP PO PRN (11:55)
--- NOTE | 2017-01-22 13:01 | PRG ---
DATE OF SERVICE: 01/22/2017 SUBJECTIVE: Patient was seen and examined at bedside and overnight events noted. Patient denies any shortness of breath or chest pain or palpitation. No history of nausea or vomiting or diarrhea or fever or chills or cramps. OBJECTIVE: GENERAL: This is a thin built male in no apparent distress. VITAL SIGNS: Temperature 98.1, pulse 85, respiratory rate 18, blood pressure 88/60. HEENT: Atraumatic, normocephalic. Oral mucosa is moist. NECK: Supple. CARDIOVASCULAR: S1, S2 heard. Rate and rhythm regular. RESPIRATORY: Clear to auscultation. GASTROINTESTINAL: Abdomen is soft. MUSCULOSKELETAL: No tenderness, no edema. DERMATOLOGIC: No skin rash. NEUROLOGIC: Alert and awake and oriented x3. No focal neurologic deficits. Moving all the extremit ies. PSYCHIATRIC: Mood and affect normal LABORATORY DATA: Potassium is 4.4, sodium is 131, BUN is 25, and creatinine is 1.2. ASSESSMENT AND PLAN: 1. Hyponatremia. Sodium level seems to be stable. The patient was taken to surgery yesterday, but surgery canceled because of hypotension. 2. Cardiorenal syndrome. Follow up with Cardiology. 3. Chronic hypotension. 4. Acute kidney injury, stable. 5. Mild anemia. 6. Sodium level is stable. Continue on free water restriction. Patient is not able to tolerate diu retics at this point due to hypotension. Continue on free water restriction and monitor sodium close ly.
--- NOTE | 2017-01-22 13:52 | PDOC.PN ---
- Subjective Encounter Start Date: 01/22/17 Encounter Start Time: 13:50 Subjective: c/o cough but no SOB/CP -: eager to go home - Objective Resuscitation Status: Resuscitation Status FULL:Full Resuscitation MAR Reviewed: Yes Vital Signs & Weight: Vital Signs (12 hours) Temp Pulse Pulse Pulse Resp BP BP 01/22/17 12:47 98.0 F 81 17 01/22/17 12:43 111 H 90 110/54 L 98/60 01/22/17 09:32 85 01/22/17 08:00 98.1 F 85 17 01/22/17 05:08 98.0 F 98 20 BP Pulse Ox Pulse Ox Pulse Ox 01/22/17 12:47 93/51 L 98 01/22/17 12:43 98 95 01/22/17 09:32 01/22/17 08:00 88/60 L 96 01/22/17 05:08 98/50 L 95 Weight Admit Weight 166 lb Weight 155 lb 14.4 oz I&O: 01/21/17 01/22/17 01/23/17 06:59 06:59 06:59 Intake Total 930.25 340 Output Total 1525 300 Balance -594.75 40 Result Diagrams: 01/18/17 04:59 01/22/17 04:57 Additional Labs: Laboratory Tests 01/15/17 01/15/17 01/15/17 15:34 15:34 15:34 Sodium 118 L* Troponin I Less than 0.010 B-Natriuretic Peptide 2363.0 H 01/15/17 01/15/17 01/15/17 18:09 19:56 20:56 Sodium 119 L* Troponin I Less than 0.010 Less than 0.010 B-Natriuretic Peptide 01/15/17 01/16/17 01/17/17 23:48 05:28 04:59 Sodium 121 L 121 L 125 L Troponin I B-Natriuretic Peptide 01/18/17 01/19/17 01/20/17 04:59 08:17 08:40 Sodium 128 L 131 L 130 L Troponin I B-Natriuretic Peptide 01/21/17 01/21/17 01/21/17 00:29 05:18 08:02 Sodium Troponin I 0.014 0.012 0.015 B-Natriuretic Peptide 01/22/17 04:57 Sodium 131 L Troponin I B-Natriuretic Peptide Phys Exam - Physical Examination Constitutional: NAD HEENT: PERRLA, moist MMs, sclera anicteric, oral pharynx no lesions Neck: no nodes, no JVD, supple, full ROM Respiratory: no wheezing, no rales, no rhonchi, clear to auscultation bilateral Cardiovascular: RRR, no significant murmur, no rub, gallop Gastrointestinal: soft, non-tender, no distention, positive bowel sounds Musculoskeletal: no edema, pulses present Neurological: non-focal, normal sensation, moves all 4 limbs Psychiatric: normal affect, A&O x 3 Skin: no rash Dx/Plan (1) Hypotension Status: Resolved Comment: Hold diuretics and Lisinopril for now. (2) Acute on chronic systolic congestive heart failure, NYHA class 2 Code(s): I50.23 - ACUTE ON CHRONIC SYSTOLIC (CONGESTIVE) HEART FAILURE Status : Acute Comment: EF 20-25%, (3) Hyponatremia Code(s): E87.1 - HYPO-OSMOLALITY AND HYPONATREMIA Status: Acute Comment: Improved, secondary to volume overload in context of CHF exacerbation.on Free water restriction. nephrology following (4) Cardiomyopathy Code(s): I42.9 - CARDIOMYOPATHY, UNSPECIFIED Status: Chronic Qualifiers: Cardiomyopathy type: unspecified Qualified Code(s): I42.9 - Cardiomyopathy , unspecified (5) Inguinal hernia of left side without obstruction or gangrene Code(s): K40.90 - UNIL INGUINAL HERNIA, W/O OBST OR GANGR, NOT SPCF RECUR Status: Chronic Comment: Surgery on Tuesday01/25/17 per GS team (6) Paroxysmal a-fib Code(s): I48.0 - PAROXYSMAL ATRIAL FIBRILLATION Status: Chronic - Plan plan discussed w/ family, PT/OT, manager social responsibility, out of bed/ambulate, DVT proph w/SCDs hold diuretics and Lisinopril as BP still on lower side. -: Euvolemic on exam.monitor for S/S of fluid overload.strict I/Os -: sodium much improved. cont free water restriction. -: Monitor clinically for s/s/ of PNA.no Abx for now. -: Ingunal hernia suregery on Tuesday.Pt will stay in house * .not safe for DC d/t low BP. Coreg on hold as well. * Add HH on DC. * Daily labs Review of Systems - Review of Systems Constitutional: Weakness, Malaise. negative: Fever, Chills, Sweats, Other Respiratory: negative: Cough, Dry, Shortness of Breath, Hemoptysis, SOB with Excertion, Pleuritic Pain, Sputum, Wheezing Cardiovascular: negative: Chest Pain, Palpitations, Orthopnea, Paroxysmal Noc. Dyspnea, Edema, Light Headedness, Other Gastrointestinal: negative: Nausea, Vomiting, Abdominal Pain, Diarrhea, Constipation, Melena, Hematochezia, Other Genitourinary: negative: Dysuria, Frequency, Incontinence, Hematuria, Retention , Other Musculoskeletal: negative: Neck Pain, Shoulder Pain, Arm Pain, Back Pain, Hand Pain, Leg Pain, Foot Pain, Other Neurological: negative: Weakness, Numbness, Incoordination, Change in Speech, Confusion, Seizures, Other - Medications/Allergies Allergies/Adverse Reactions: Allergies Allergy/AdvReac Type Severity Reaction Status Date / Time aspirin Allergy Severe Verified 01/15/17 21:33 NSAIDS (Non-Steroidal Allergy Verified 01/15/17 21:33 Anti-Inflamma Medications: Current Medications Acetaminophen (Tylenol) 650 mg PO Q4H PRN PRN Reason: Headache/Fever or Pain Acetaminophen (Tylenol) 650 mg CA Q4H PRN PRN Reason: Headache/Fever or Pain Bisacodyl (Dulcolax) 10 mg CA DAILYPRN PRN PRN Reason: Constipation Guaifenesin/Dextromethorphan (Robitussin Dm) 15 ml PO QIDPRN PRN PRN Reason: Cough Last Admin: 01/22/17 11:55 Dose: 15 ml Ondansetron HCl (Zofran) 4 mg IVP Q6H PRN PRN Reason: Nausea/Vomiting Pantoprazole Sodium (Protonix) 40 mg PO DAILY ISAURA Last Admin: 01/22/17 09:28 Dose: 40 mg Polyethylene Glycol (Miralax) 17 gm PO DAILY ISAURA Last Admin: 01/22/17 09:28 Dose: 17 gm Sodium Chloride (Flush - Normal Saline) 10 ml IVF Q12HR ISAURA Last Admin: 01/22/17 09:28 Dose: 10 ml Sodium Chloride (Flush - Normal Saline) 10 ml IVF PRN PRN PRN Reason: Saline Flush Temazepam (Restoril) 15 mg PO HS PRN PRN Reason: Insomnia Last Admin: 01/20/17 20:53 Dose: 15 mg
[2017-01-23 05:55] LABS: Anion Gap 11 mmol/L (10-20); BUN (Urea Nitrogen) 25 mg/dL (8.4-25.7); Calc. Creatinine Clearance 54 mL/min (70-130); Carbon Dioxide 30 mmol/L (23-31); Chloride 93 mmol/L (98-107); Estimated GFR-MDRD 69
[2017-01-23 06:04] LABS: #Eosinphils 0.6 thou/uL (0.0-0.7); #Lymphocytes 1.1 thou/uL (1.20-3.40); #Neutrophils 5.1 thou/uL (1.40-6.50); %Basophils 0.4 % (0.0-1.0); %Eosinophils 7.9 % (0.0-10.0); %Lymphocytes 14.2 % (21.0-51.0); %Monocytes 12.7 % (0.0-10.0); Hematocrit 38.9 % (42.0-52.0); Mean Platelet Volume 7.4 fL (7.4-10.4); Red Blood Cell (RBC) Count 3.92 mill/uL (4.70-6.10); White Blood Cell (WBC) Count 7.8 thou/uL (4.8-10.8)
[2017-01-23] MEDS ORDERED: Furosemide 40 MG TAB PO SCH (09:00)
[2017-01-23] MEDS: Polyethylene Glycol 3350 17 GM Packet PO SCH (09:12)
[2017-01-23] MEDS: Guaifenesin DM 100-10/5 ML UDCUP PO PRN (09:12)
[2017-01-23] MEDS ORDERED: TICAGRELOR 90 MG TABLET PO SCH (10:44)
[2017-01-23] MEDS ORDERED: Nitroglycerin 0.4 MG TAB (25 Tab Bottle) ONE (10:54)
[2017-01-23] MEDS ORDERED: Heparin 10,000 UNITS/ 10 ML VIAL SLOW IVP SCH ×2 (11:00)
[2017-01-23] MEDS ORDERED: Heparin 25,000 units/D5W 500 ML IVPB SCH (11:00)
[2017-01-23] MEDS ORDERED: Nitroglycerin 100MG/250ML BOT 250 ML ONE (11:21)
[2017-01-23] MEDS ORDERED: Heparin 1000 UNIT/NS 500ML(OR) 1,000 ML ONE (11:21)
--- NOTE | 2017-01-23 11:27 | PDOC.PN ---
- Subjective Encounter Start Date: 01/23/17 Encounter Start Time: 09:30 Subjective: C/O CP AND DIAPHORESIS AT THIS TIME..SEVERE DISTRESS - Objective Resuscitation Status: Resuscitation Status FULL:Full Resuscitation MAR Reviewed: Yes Vital Signs & Weight: Vital Signs (12 hours) Temp Pulse Resp BP Pulse Ox 01/23/17 08:00 97.8 F 96 17 104/74 96 01/23/17 04:00 98.0 F 92 20 92/58 L 97 Weight Admit Weight 166 lb Weight 157 lb 6.4 oz I&O: 01/22/17 01/23/17 01/24/17 06:59 06:59 06:59 Intake Total 340 1240 Output Total 300 1575 Balance 40 -335 Result Diagrams: 01/23/17 05:10 01/23/17 05:10 Radiology Reviewed by me: Yes EKG Reviewed by me: Yes Phys Exam - Physical Examination IN DISTRESS HEENT: PERRLA, moist MMs, sclera anicteric Neck: supple, full ROM Respiratory: no rhonchi Cardiovascular: RRR, irregular Gastrointestinal: soft, non-tender Musculoskeletal: no edema, pulses present Neurological: non-focal, moves all 4 limbs Psychiatric: A&O x 3 Deviation from normal: ANXIOUS Dx/Plan (1) AMI (acute myocardial infarction) Code(s): I21.9 - ACUTE MYOCARDIAL INFARCTION, UNSPECIFIED Status: Acute Qualifiers: Myocardial infarction ST status: ST elevation myocardial infarction (2) CHF exacerbation Code(s): I50.9 - HEART FAILURE, UNSPECIFIED Status: Acute Qualifiers: Congestive heart failure type: combined Qualified Code(s): I50.43 - Acute on chronic combined systolic (congestive) and diastolic (congestive) heart failure Comment: ef of 25% (3) Hypotension Status: Resolved Comment: Hold diuretics and Lisinopril for now. (4) Hyponatremia Code(s): E87.1 - HYPO-OSMOLALITY AND HYPONATREMIA Status: Acute Comment: Improved, secondary to volume overload in context of CHF exacerbation.on Free water restriction. nephrology following (5) Cerebral vascular disease Code(s): I67.9 - CEREBROVASCULAR DISEASE, UNSPECIFIED Status: Chronic (6) Inguinal hernia of left side without obstruction or gangrene Code(s): K40.90 - UNIL INGUINAL HERNIA, W/O OBST OR GANGR, NOT SPCF RECUR Status: Chronic Comment: Surgery on Tuesday01/25/17 per GS team (7) Paroxysmal a-fib Code(s): I48.0 - PAROXYSMAL ATRIAL FIBRILLATION Status: Chronic - Plan cont current plan of care PT HAD AMI...TO SPORT INTERN NOW PER DR. ADEN * . - Discharge Day Encounter end time: 11:28
--- NOTE | 2017-01-23 11:38 | PRG ---
DATE OF SERVICE: 01/23/2017 HISTORY: Mr. Cline is doing better today. His blood pressure is 100 systolic now, he is up walking in the halls. He is asymptomatic. PHYSICAL EXAMINATION: LUNGS: Clear. CARDIAC: Normal S1, S2. ABDOMEN: Soft, nontender. EXTREMITIES: There is no edema. ASSESSMENT: 1. Hypotension, improved. 2. Coronary artery disease. Plan is to proceed with surgery for the inguinal hernia as before, that is the initial plan. Dr. Wilian clarke will resume tomorrow.
[2017-01-23] MEDS ORDERED: Heparin 1000 UNIT/NS 500ML(OR) 500 ML ONE (12:04)
[2017-01-23] MEDS ORDERED: Heparin 10,000 UNITS/1 ML VIAL ONE (12:04)
[2017-01-23] MEDS ORDERED: Fentanyl 100 MCG/2 ML VIAL ONE (12:08)
[2017-01-23] MEDS ORDERED: Ondansetron HCl/PF 4 MG/2 ML Vial ONE (12:14)
[2017-01-23 12:17] LABS: #Basophils 0.1 thou/uL (0.0-0.2); #Eosinphils 0.5 thou/uL (0.0-0.7); #Lymphocytes 1.3 thou/uL (1.20-3.40); #Monocytes 0.8 thou/uL (0.11-0.59); #Neutrophils 6.2 thou/uL (1.40-6.50); %Basophils 0.9 % (0.0-1.0); %Eosinophils 5.5 % (0.0-10.0); %Lymphocytes 14.9 % (21.0-51.0); %Monocytes 9.4 % (0.0-10.0); Hematocrit 42.7 % (42.0-52.0); White Blood Cell (WBC) Count 8.9 thou/uL (4.8-10.8)
[2017-01-23 12:18] LABS: Prothrombin Time 15.1 SEC (12.0-14.7)
[2017-01-23 12:19] LABS: PTT 33.9 SEC (22.9-36.1)
[2017-01-23 12:24] LABS: Anion Gap 15 mmol/L (10-20); BUN (Urea Nitrogen) 23 mg/dL (8.4-25.7); CK (CPK) 9 U/L (30-200); Calc. Creatinine Clearance 49 mL/min (70-130); Calcium 9.6 mg/dL (7.8-10.44); Carbon Dioxide 29 mmol/L (23-31); Chloride 93 mmol/L (98-107); Estimated GFR-MDRD 61
[2017-01-23 12:29] LABS: Troponin I Less than 0.010 ng/mL (< 0.028)
[2017-01-23] MEDS ORDERED: Mag-Al 1200 mg/1200 mg/30 ML UDCUP PO PRN (12:49)
[2017-01-23] MEDS ORDERED: Milk Of Magnesia 30 ML UDCUP PO PRN (12:49)
[2017-01-23] MEDS ORDERED: cloNIDine 0.1 MG TAB PO PRN (12:49)
[2017-01-23] MEDS ORDERED: traMADol HCl 50 MG TAB PO PRN (12:49)
--- NOTE | 2017-01-23 12:53 | ADD-PRG ---
DATE OF SERVICE: 01/23/2017 ADDENDUM SUBJECTIVE: Mr. Cline was doing well this morning, but he had a sudden onset of severe retrosternal chest pain, it was intense and became diaphoretic. We were still on the floor and we came [place] [facility] [place]. He was in distress with severe pain. He was given 7500 units of heparin and aspirin 81 mg chewable. The patient's pain gradually improved. He was moved to the Intensive Care Unit. He had ST elevation on the initial monitor lead and then improved. He was taken down to the critical c are unit. The patient stated that the patient's pain was going away and then it is coming back, now the ST segments are back up and elevated. The patient appears to be having acute myocardial infarction, refractory to the medication. ASSESSMENT: 1. Acute myocardial infarction. 2. History of congestive heart failure. 3. History of hyponatremia. 4. Aspirin intolerance in the past, making his heart flutter, but he did tolerate 81 mg here. PLAN: At this time, the patient is critically ill. Recommended that he will proceed to cardiac cath eterization lab as soon as possible. I discussed the risks with the patient. He understands the ris ks of stroke, heart attack, loss of blood supply to the leg or kidney, stent thrombosis, stent resten osis and we will proceed. The patient is critically ill at this point and needs to go directly to [facility] cardiac catheterization laboratory. The patient's daughter is on the way.
--- NOTE | 2017-01-23 13:35 | PRG ---
DATE OF SERVICE: 01/23/2017 SUBJECTIVE: Patient was seen and examined at bedside and overnight events noted. Patient denies any shortness of breath or chest pain or palpitation. No history of nausea or vomiting or diarrhea or fever or chills or cramps. The patient is complaining of chest pain this morning and was found with ST elevation PA and he has been taken to photo lab technician today. OBJECTIVE: GENERAL: This is a thin well-built white male who was having chest pain this morning. VITAL SIGNS: Temperature 97.8, pulse 96, respiratory rate 18, and blood pressure 104/74. HEENT: Atraumatic, normocephalic. Oral mucosa is moist. NECK: Supple. CARDIOVASCULAR: S1, S2 heard. Rate and rhythm regular. RESPIRATORY: Clear to auscultation. GASTROINTESTINAL: Abdomen is soft. MUSCULOSKELETAL: No tenderness, no edema. DERMATOLOGIC: No skin rash. NEUROLOGIC: Alert and awake and oriented x3. No focal neurologic deficits. Moving all the extremit ies. PSYCHIATRIC: Mood and affect normal DATE OF SERVICE: 01/23/2013. LABORATORY DATA: Sodium 130, potassium is 4.0, BUN is 25, creatinine 1.03. ASSESSMENT AND PLAN: 1. Hyponatremia. Sodium level is stable. Most likely in the baseline. Limit fluid intake. 2. Cardiorenal syndrome with chest pain. Plan is to take him to the photo lab technician today and most likely ST elevation myocardial infarction. 3. Coronary artery disease. 4. Chronic hypotension. 5. Acute kidney injury, better. 6. Anemia. 7. Sodium level is stable. Overall poor prognosis. Follow with Cardiology.
[2017-01-23 14:11] LABS: Troponin I 0.533 ng/mL (< 0.028)
[2017-01-23] MEDS ORDERED: Iopamidol 370 76% 100 ML VIAL ONE (14:44)
[2017-01-23] MEDS ORDERED: Sodium Chloride 0.9% 1,000 ML IV SCH (14:45)
[2017-01-23] MEDS ORDERED: ALPRAZolam 0.5 MG TAB PO PRN (16:40)
[2017-01-23 17:32] LABS: PTT 120.4 SEC (22.9-36.1)
[2017-01-23 19:35] LABS: Troponin I 5.002 ng/mL (< 0.028)
[2017-01-23] MEDS: Acetaminophen/Codeine 30-300mg Tablet PO PRN (20:07)
[2017-01-23] MEDS: Atorvastatin Calcium 40 MG TAB PO SCH (20:07)
[2017-01-23] MEDS: Temazepam 15 MG CAP PO PRN (20:08)
[2017-01-23] MEDS: TICAGRELOR 90 MG TABLET PO SCH (20:53)
--- NOTE | 2017-01-23 22:16 | PRG ---
DATE OF SERVICE: 01/23/2017 Critical care time spent on Diallo Cline. This was between 30-74 minutes and was exceeding 30 minute s. The patient began developing severe substernal chest pain while on telemetry after walking. I was summoned to the room. The patient was diaphoretic, pale, and nearly unresponsive, laid him in a supine position. The patient was having intractable pain. On the monitor, he had ST elevation. T he patient was given aspirin. He initially said he is allergic to ASPIRIN, but he said he had just f luttering. It took some time to get the aspirin as it had to come from the pharmacy. Also, he was g iven heparin, although again, it took quite a bit of time to get the heparin. I stayed at the patient's bedside, then the patient was transferred to the intensive care unit. The patient's pain initially improved, felt much better, but then, his pain worsened again. It was inten se. The patient's lungs were clear during this time. His heart was more rapid and irregular. The p atient became diaphoretic again. Nearly 40 minutes were spent at the patient's bedside in addition to reviewing previous information a nd reviewing previous cardiac catheterization films. Ultimately, the decision was made to take the p atient on an emergency basis to the cardiac catheterization lab. I spoke with his daughter over the phone to explain the plan, initially would be conservative, but then the patient's pain worsened and we he had to go urgently to the catheterization lab. Fortunately, as is outlined in the other notes, we found the culprit vessel and the stent was placed successfully.
[2017-01-24 04:26] LABS: #Basophils 0.1 thou/uL (0.0-0.2); #Eosinphils 0.5 thou/uL (0.0-0.7); #Lymphocytes 0.9 thou/uL (1.20-3.40); #Monocytes 1.1 thou/uL (0.11-0.59); #Neutrophils 7.6 thou/uL (1.40-6.50); %Basophils 0.8 % (0.0-1.0); %Eosinophils 4.9 % (0.0-10.0); %Lymphocytes 9.1 % (21.0-51.0); %Monocytes 10.8 % (0.0-10.0); Hematocrit 38.7 % (42.0-52.0); Mean Platelet Volume 7.2 fL (7.4-10.4); Red Blood Cell (RBC) Count 3.87 mill/uL (4.70-6.10); White Blood Cell (WBC) Count 10.2 thou/uL (4.8-10.8)
[2017-01-24 04:43] LABS: ALT (SGPT) 20 U/L (8-55); AST (SGOT) 91 U/L (5-34); Alkaline Phosphatase 67 U/L (40-150); Anion Gap 13 mmol/L (10-20); BUN (Urea Nitrogen) 22 mg/dL (8.4-25.7); Bilirubin, Total 0.8 mg/dL (0.2-1.2); Calc. Creatinine Clearance 58 mL/min (70-130); Calcium 9.3 mg/dL (7.8-10.44); Carbon Dioxide 28 mmol/L (23-31); Chloride 93 mmol/L (98-107); Estimated GFR-MDRD 73; Protein, Total 6.2 g/dL (5.8-8.1)
[2017-01-24] MEDS: TICAGRELOR 90 MG TABLET PO SCH ×2 (09:16→20:26)
[2017-01-24] MEDS: Polyethylene Glycol 3350 17 GM Packet PO SCH (09:16)
--- NOTE | 2017-01-24 09:41 | CON ---
DATE OF CONSULTATION: 01/24/2017 HISTORY OF PRESENT ILLNESS: Mr. Cline is an 81-year-old male who was hospitalized originally on 01/2017 for evaluation of congestive heart failure, hyponatremia, and a left inguinal hernia. Yester day, he had chest pain and had to be taken to the Cardiac Catheterization Lab for stenting. He says he now feels better from that standpoint and is no longer having chest pain and is not having shortne ss of breath. PAST MEDICAL HISTORY: 1. Chronic atrial fibrillation. 2. Congestive heart failure with EF of 20%. 3. Stroke. 4. Coronary artery disease. 5. Deep venous thrombosis in the right leg. 6. Pancreatitis. PAST SURGICAL HISTORY: Cholecystectomy, upper and lower endoscopies, carotid endarterectomy, right s houlder surgery, right knee surgery. SOCIAL HISTORY: Nonsmoker, does not consume alcohol, does not use illicit drugs. ALLERGIES: ASPIRIN, NONSTEROIDAL ANTI-INFLAMMATORY MEDICATIONS. CURRENT MEDICATIONS: Restoril 15 mg at night, aspirin 81 mg daily, atorvastatin 40 mg daily, clonidi ne 0.1 mg p.r.n., Protonix 40 mg daily, Restoril 15 mg nightly if needed, Brilinta 90 mg b.i.d., Tram adol 50 mg q.6h. as needed. MEDICATIONS PRIOR TO ADMISSION: Flomax, furosemide and Coreg. REVIEW OF SYSTEMS: He denies fever, chills, nausea, vomiting, chest pain, hematemesis, melena, hemat ochezia, hematuria, or dysuria. PHYSICAL EXAMINATION: VITAL SIGNS: Temperature 97.6, pulse 112, respirations 15, O2 sat 98%, blood pressure 113/72. GENERAL: He is awake and alert, in no distress. HEENT: Unremarkable. NECK: Without adenopathy, JVD, or bruits. LUNGS: Clear to auscultation without wheezing or rhonchi. CARDIAC: S1, S2, irregularly irregular without murmur. ABDOMEN: Soft, nontender. EXTREMITIES: Without clubbing, cyanosis, or edema. LABORATORY DATA: Sodium 130, potassium 4.2, chloride 93, CO2 28, BUN 22, creatinine 0.9, glucose 123 . Troponin 5.0. White count 10.2, hematocrit 38.7, platelet count 255. ASSESSMENT: 1. Myocardial infarction. 2. Coronary artery disease. 3. Hyponatremia. 4. Inguinal hernia. PLAN: He can be transferred out to the floor when okay with Cardiology. No acute pulmonary Critical Care needs are identified. I will be happy to follow while he is in the ICU.
--- NOTE | 2017-01-24 12:30 | PDOC.PN ---
- Subjective Encounter Start Date: 01/24/17 Encounter Start Time: 13:30 Subjective: Patient doing well after stent. No chest pain. No SOB. - Objective Resuscitation Status: Resuscitation Status FULL:Full Resuscitation MAR Reviewed: Yes Vital Signs & Weight: Vital Signs (12 hours) Temp Pulse Resp Pulse Ox 01/24/17 08:00 97.5 F L 108 H 22 H 100 01/24/17 04:00 97.6 F Weight Admit Weight 166 lb Weight 158 lb 11.725 oz Most Recent Monitor Data Heart Rate from ECG 126 NIBP 94/65 NIBP BP-Mean 70 Respiration from ECG 15 SpO2 97 I&O: 01/23/17 01/24/17 01/25/17 06:59 06:59 06:59 Intake Total 1240 1796 175 Output Total 1575 625 100 Balance -335 1171 75 Result Diagrams: 01/24/17 03:54 01/24/17 03:53 Additional Labs: Accuchecks 01/23/17 10:11 POC Glucose 133 H Phys Exam - Physical Examination Constitutional: NAD HEENT: moist MMs Respiratory: no wheezing, no rales, no rhonchi Cardiovascular: RRR, no significant murmur Gastrointestinal: soft, positive bowel sounds Neurological: non-focal, moves all 4 limbs Psychiatric: normal affect, A&O x 3 Dx/Plan (1) STEMI (ST elevation myocardial infarction) Status: Acute Comment: S/P Stent placement on 01/23/2017 (2) CHF exacerbation Code(s): I50.9 - HEART FAILURE, UNSPECIFIED Status: Acute Qualifiers: Congestive heart failure type: combined Qualified Code(s): I50.43 - Acute on chronic combined systolic (congestive) and diastolic (congestive) heart failure Comment: EF of 25% (3) Hypotension Status: Resolved Comment: Hold diuretics and Lisinopril for now. (4) Hyponatremia Code(s): E87.1 - HYPO-OSMOLALITY AND HYPONATREMIA Status: Acute Comment: Improved, secondary to volume overload in context of CHF exacerbation.on Free water restriction. nephrology following (5) Cerebral vascular disease Code(s): I67.9 - CEREBROVASCULAR DISEASE, UNSPECIFIED Status: Chronic (6) Paroxysmal a-fib Code(s): I48.0 - PAROXYSMAL ATRIAL FIBRILLATION Status: Chronic - Plan cont current plan of care, PT/OT, DVT proph w/SCDs To telemetry when ok with cardiology. * . - Discharge Day Encounter end time: 14:00
--- NOTE | 2017-01-24 15:33 | PRG ---
DATE OF SERVICE: 01/24/2017 SUBJECTIVE: Mr. Cline yesterday appeared to be having a myocardial infarction on telemetry monitorin g. He underwent urgent coronary angiography with stent placement with a drug-coated stent to the cir cumflex artery. He had marked relief in symptoms after balloon was performed in addition to a stent placed. He is currently stable. He also appears to be in atrial fibrillation, has been noted to be in atrial fibrillation over the last 3 days. He has not been anticoagulated. PHYSICAL EXAMINATION: CURRENT VITAL SIGNS: Blood pressure 120/78, pulse 100, respirations 20. LUNGS: Clear to auscultation. CARDIAC: Irregular, irregular. ABDOMEN: Soft, nontender, nondistended. EXTREMITIES: No edema. IMPRESSION: 1. Acute myocardial infarction. 2. Atrial fibrillation. 3. Ischemic cardiomyopathy. 4. Hernia. RECOMMENDATIONS: Unfortunately, we will have to defer hernia repair for at least 3 months. Patient will need to be on antiplatelet therapy for at least 6 months. We will change Brilinta to Plavix. T here have been some compliance issues. I am concerned about b.i.d. dosing in addition to cost. We w ill switch in a.m. We will give him a 300 mg dose of Plavix followed by 75 q.a.m. We will also add beta-lucille therapy if patient tolerates it. May also consider amiodarone. He appears to be tolera ting it well. Unfortunately, we will also need anticoagulation therapy. Given this, he has been in atrial fibrillation for at least 3 days. He is in increased risk of bleeding and may consider Plavix anticoagulant only with no aspirin.
[2017-01-24] MEDS: Temazepam 15 MG CAP PO PRN (20:26)
[2017-01-24] MEDS: Atorvastatin Calcium 40 MG TAB PO SCH (20:26)
--- NOTE | 2017-01-25 07:37 | EKG ---
Test Reason : STAT Blood Pressure : / mmHG Vent. Rate : 111 BPM Atrial Rate : 093 BPM P-R Int : 000 ms QRS Dur : 124 ms QT Int : 346 ms P-R-T Axes : 000 007 100 degrees QTc Int : 470 ms Atrial fibrillation with rapid ventricular response with premature ventricular or aberrantly conducte d complexes Non-specific intra-ventricular conduction delay Abnormal ECG Confirmed by ATILIO RECINOS, DR. Hua ([id number]) on 01/25/2017 7:37:26 AM Referred By: GUILLERMO Confirmed By:DR. Javid TRIMBLE MD
--- NOTE | 2017-01-25 07:39 | EKG ---
Test Reason : Blood Pressure : / mmHG Vent. Rate : 101 BPM Atrial Rate : 150 BPM P-R Int : 000 ms QRS Dur : 140 ms QT Int : 382 ms P-R-T Axes : 000 -29 091 degrees QTc Int : 495 ms Atrial fibrillation with occ fusion beats Non-specific intra-ventricular conduction block T wave abnormality, consider lateral ischemia Abnormal ECG When compared with ECG of 21-JAN-2017 00:26, Current undetermined rhythm precludes rhythm comparison, needs review Nonspecific T wave abnormality now evident in Anterior leads Confirmed by ATILIO RECINOS, DR. Hua (4) on 01/25/2017 7:39:07 AM Referred By: MARKIE Confirmed By:DR. Javid TRIMBLE MD
--- NOTE | 2017-01-25 08:20 | PRG ---
DATE OF SERVICE: 01/25/2017 SUBJECTIVE: The patient remains in the CCU. He is having no chest pain. PHYSICAL EXAMINATION: VITAL SIGNS: Temperature is 98.1, pulse 109, blood pressure 110/60, I have seen his heart rate as hi gh as in the 130s. He is in atrial fibrillation with rapid ventricular response. Total intake for 2 4 hours 1796 and output 625. HEENT: Unremarkable. NECK: No JVD, no bruits. LUNGS: Clear to auscultation anteriorly bilaterally. CARDIOVASCULAR: S1 and S2 irregularly irregular without murmur. ABDOMEN: Soft and nontender. EXTREMITIES: No edema. LABORATORY DATA: No labs were done today. ASSESSMENT: 1. Myocardial infarction. 2. Status post stent placement. 3. Atrial fibrillation with rapid ventricular response. PLAN: Current issues are being managed by Cardiology. It is anticipated the patient will be back to telemetry soon. No pulmonary recommendations at this time are available as needed.
[2017-01-25] MEDS ORDERED: Clopidogrel Bisulfate 300 MG TAB PO SCH (09:00)
[2017-01-25] MEDS: Polyethylene Glycol 3350 17 GM Packet PO SCH (09:03)
[2017-01-25] MEDS: TICAGRELOR 90 MG TABLET PO SCH (09:04)
[2017-01-25] MEDS: Carvedilol 3.125 MG TAB PO SCH ×2 (09:30→20:17)
--- NOTE | 2017-01-25 12:17 | PDOC.PN ---
- Subjective Encounter Start Date: 01/25/17 Encounter Start Time: 12:45 Subjective: Patient feeling weak. Having a non-productive persistent cough. BP better -: and holding up with the Coreg started this AM, so cardiology cleared him to -: go to the floor. - Objective Resuscitation Status: Resuscitation Status FULL:Full Resuscitation MAR Reviewed: Yes Vital Signs & Weight: Vital Signs (12 hours) Temp Pulse Resp Pulse Ox 01/25/17 08:00 97.7 F 98 16 100 01/25/17 04:00 98.1 F Weight Admit Weight 166 lb Weight 165 lb 5.547 oz Most Recent Monitor Data Heart Rate from ECG 103 NIBP 109/71 NIBP BP-Mean 80 Respiration from ECG 21 SpO2 98 I&O: 01/24/17 01/25/17 01/26/17 06:59 06:59 06:59 Intake Total 1796 588 287 Output Total 625 427 100 Balance 1171 161 187 Result Diagrams: 01/24/17 03:54 01/24/17 03:53 Phys Exam - Physical Examination Constitutional: NAD HEENT: moist MMs Respiratory: no wheezing, no rales, no rhonchi some upper respiratory wet congested noises Cardiovascular: no significant murmur, irregular Gastrointestinal: soft, positive bowel sounds Musculoskeletal: no edema Neurological: non-focal, moves all 4 limbs Psychiatric: A&O x 3 Deviation from normal: tired appearing Dx/Plan (1) STEMI (ST elevation myocardial infarction) Status: Acute Comment: S/P Stent placement on 01/23/2017 (2) CHF exacerbation Code(s): I50.9 - HEART FAILURE, UNSPECIFIED Status: Acute Qualifiers: Congestive heart failure type: combined Qualified Code(s): I50.43 - Acute on chronic combined systolic (congestive) and diastolic (congestive) heart failure Comment: EF of 25% (3) Hypotension Status: Resolved Comment: Hold diuretics and Lisinopril for now. (4) Hyponatremia Code(s): E87.1 - HYPO-OSMOLALITY AND HYPONATREMIA Status: Acute Comment: Improved, secondary to volume overload in context of CHF exacerbation.on Free water restriction. nephrology following (5) Cerebral vascular disease Code(s): I67.9 - CEREBROVASCULAR DISEASE, UNSPECIFIED Status: Chronic (6) Paroxysmal a-fib Code(s): I48.0 - PAROXYSMAL ATRIAL FIBRILLATION Status: Chronic - Plan cont current plan of care Transfer to telemetry * . - Discharge Day Encounter end time: 12:55
[2017-01-25] MEDS: Benzonatate 100 MG CAP PO PRN (13:22)
[2017-01-25 15:23] LABS: Anion Gap 11 mmol/L (10-20); BUN (Urea Nitrogen) 24 mg/dL (8.4-25.7); Calc. Creatinine Clearance 53 mL/min (70-130); Calcium 9.2 mg/dL (7.8-10.44); Carbon Dioxide 29 mmol/L (23-31); Chloride 93 mmol/L (98-107); Estimated GFR-MDRD 63
--- NOTE | 2017-01-25 17:57 | PRG ---
DATE OF SERVICE: 01/25/2017 NEPHROLOGY PROGRESS NOTE SUBJECTIVE: This is an 81-year-old gentleman being seen for hyponatremia. The patient denies any na usea, vomiting, or chest pain. OBJECTIVE: GENERAL: Patient is awake, alert. VITAL SIGNS: Afebrile, pulse 75, breathing at 16, blood pressure was 98/60. GENERAL APPEARANCE AND MENTAL STATUS: Fair. HEAD/NECK: Normocephalic. Atraumatic. EYES: EOMI. No deformity. EARS: Clear. No ulcers. NOSE: Intact. No lesions. MOUTH: Clear. No discharge. THROAT: Clear. No exudate. LUNGS: Clear. No crackles. CARDIAC: S1, S2. No rub. ABDOMEN: Benign. BS+. GENITALIA/RECTUM: Marin absent. BACK/EXTREMITIES: Edema 0+ Ulcer-. NEUROLOGICAL: Alert and motor intact. SKIN: Rash- Bruise-. LYMPHATICS: Edema- Ulcer-. LABORATORY DATA: Show hemoglobin 12.7. Sodium 128, potassium 5.3, creatinine 1.1. ASSESSMENT AND RECOMMENDATIONS: 1. 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 2. 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 The patient's urine output has decre ased just 150 mL today. I will recheck potassium again and consider Kayexalate if needed. No indica tion for dialysis at this time.
[2017-01-25 18:04] LABS: Oxyhemoglobin 94.9 % (94.0-97.0); Sodium 127 mmol/L (135-148)
[2017-01-25 18:10] LABS: Modified Allen's Test POSITIVE; Vent NO
[2017-01-25 18:11] LABS: Mode RA
[2017-01-25] MEDS ORDERED: ALPRAZolam 0.25 MG TAB PO SCH (18:45)
[2017-01-25] MEDS: Temazepam 15 MG CAP PO PRN (20:17)
[2017-01-25] MEDS: Atorvastatin Calcium 40 MG TAB PO SCH (20:17)
[2017-01-26 04:56] LABS: #Eosinphils 0.4 thou/uL (0.0-0.7); #Lymphocytes 1.3 thou/uL (1.20-3.40); #Monocytes 0.8 thou/uL (0.11-0.59); #Neutrophils 5.3 thou/uL (1.40-6.50); %Basophils 0.6 % (0.0-1.0); %Eosinophils 5.7 % (0.0-10.0); %Monocytes 10.3 % (0.0-10.0); Hematocrit 37.3 % (42.0-52.0); Mean Platelet Volume 7.8 fL (7.4-10.4); Red Blood Cell (RBC) Count 3.75 mill/uL (4.70-6.10); White Blood Cell (WBC) Count 7.9 thou/uL (4.8-10.8)
[2017-01-26 05:08] LABS: Anion Gap 10 mmol/L (10-20); BUN (Urea Nitrogen) 23 mg/dL (8.4-25.7); Calc. Creatinine Clearance 61 mL/min (70-130); Calcium 8.9 mg/dL (7.8-10.44); Carbon Dioxide 28 mmol/L (23-31); Chloride 93 mmol/L (98-107); Estimated GFR-MDRD 74; Magnesium 2.2 mg/dL (1.6-2.6)
--- NOTE | 2017-01-26 07:49 | PRG ---
DATE OF SERVICE: 01/26/2017 SUBJECTIVE: He is feeling well. He is anxious to move out of the ICU. PHYSICAL EXAMINATION: VITAL SIGNS: His temperature is 97.8, pulse 92, blood pressure 90/66. A 24 hour intake 762, output 425. HEENT: Unremarkable. NECK: No JVD. LUNGS: Clear. CARDIAC: S1, S2 irregularly irregular. ABDOMEN: Soft and nontender. EXTREMITIES: No edema. LABORATORY DATA: White blood cell count 7.9, hematocrit 37.3, and platelet count 243. Sodium 127, p otassium 4.4, chloride 93, CO2 28, BUN 23, creatinine 0.9, glucose 97. ASSESSMENT: 1. Status post myocardial infarction. 2. Atrial fibrillation. 3. Hyponatremia. PLAN: He can be transferred out to telemetry unit for further medication adjustments. Nephrology is following the hyponatremia. There no active pulmonary issues at this time and I will sign off.
--- NOTE | 2017-01-26 09:05 | PRG ---
DATE OF SERVICE: 01/26/2017 SUBJECTIVE: An 81-year-old gentleman being seen for acute kidney injury and hyponatremia. The patie nt denies any nausea, vomiting or chest pain. PHYSICAL EXAMINATION: VITAL SIGNS: Afebrile, pulse 114, breathing 16, blood pressure 102/60. GENERAL: Awake, alert, in no acute distress. GENERAL APPEARANCE AND MENTAL STATUS: Fair. HEAD/NECK: Normocephalic. Atraumatic. EYES: EOMI. No deformity. EARS: Clear. No ulcers. NOSE: Intact. No lesions. MOUTH: Clear. No discharge. THROAT: Clear. No exudate. LUNGS: Clear. No crackles. CARDIAC: S1, S2. No rub. ABDOMEN: Benign. BS+. GENITALIA/RECTUM: Marin absent. BACK/EXTREMITIES: Edema 0+ Ulcer-. NEUROLOGICAL: Alert and motor intact. SKIN: Rash- Bruise- LYMPHATICS: Edema- Ulcer-. LABORATORY DATA: Show hemoglobin 12.1, potassium 4.4, creatinine 0.97. ASSESSMENT AND RECOMMENDATIONS: 1. Hyponatremia due to syndrome of inappropriate antidiuretic hormone secretion versus decreased eff ective arterial blood volume. The patient's blood pressure was low, so I am going to start gentle hy dration and recheck sodium at 12:00 p.m. 2. Hypertension, stable. 3. Anemia, stable. 4. Hyperkalemia, resolved. No indication for dialysis.
[2017-01-26] MEDS: Clopidogrel Bisulfate 75 MG TAB PO SCH (09:25)
[2017-01-26] MEDS: Carvedilol 3.125 MG TAB PO SCH ×2 (09:25→20:35)
[2017-01-26] MEDS ORDERED: Digoxin 0.5 MG/2 ML AMP SLOW IVP SCH (09:30)
[2017-01-26] MEDS: Polyethylene Glycol 3350 17 GM Packet PO SCH (09:30)
[2017-01-26] MEDS ORDERED: Sodium Chloride 0.9% 1,000 ML IV SCH (10:15)
--- NOTE | 2017-01-26 10:56 | PDOC.PN ---
- Subjective Encounter Start Date: 01/26/17 Encounter Start Time: 09:20 BP running a little low today. no acute night events or significant complaints at this time - Objective Resuscitation Status: Resuscitation Status FULL:Full Resuscitation Vital Signs & Weight: Vital Signs (12 hours) Temp Pulse 01/26/17 10:06 103 H 01/26/17 08:00 97.5 F L 01/26/17 04:00 97.8 F 01/26/17 00:00 98.0 F Weight Admit Weight 166 lb Weight 169 lb 12.095 oz Most Recent Monitor Data Heart Rate from ECG 97 NIBP 107/69 NIBP BP-Mean 95 Respiration from ECG 23 SpO2 100 I&O: 01/25/17 01/26/17 01/27/17 06:59 06:59 06:59 Intake Total 588 762 390 Output Total 427 425 0 Balance 161 337 390 Result Diagrams: 01/26/17 03:48 01/26/17 03:48 Phys Exam - Physical Examination HEENT: PERRLA, moist MMs Respiratory: no wheezing Cardiovascular: RRR Gastrointestinal: soft, non-tender Musculoskeletal: pulses present Neurological: non-focal Psychiatric: normal affect, A&O x 3 Dx/Plan (1) CHF exacerbation Code(s): I50.9 - HEART FAILURE, UNSPECIFIED Status: Acute Qualifiers: Congestive heart failure type: combined Qualified Code(s): I50.43 - Acute on chronic combined systolic (congestive) and diastolic (congestive) heart failure Comment: EF of 25% (2) Acute on chronic systolic congestive heart failure, NYHA class 2 Code(s): I50.23 - ACUTE ON CHRONIC SYSTOLIC (CONGESTIVE) HEART FAILURE Status : Acute Comment: EF 20-25%, (3) Hyponatremia Code(s): E87.1 - HYPO-OSMOLALITY AND HYPONATREMIA Status: Acute Comment: Improved, secondary to volume overload in context of CHF exacerbation.on Free water restriction. nephrology following (4) Cardiomyopathy Code(s): I42.9 - CARDIOMYOPATHY, UNSPECIFIED Status: Chronic Qualifiers: Cardiomyopathy type: unspecified Qualified Code(s): I42.9 - Cardiomyopathy , unspecified - Plan cont current plan of care, plan discussed w/ family * . will start gentle hydration. recheck sodium around noon today. follow accordingly. transfer to tele
[2017-01-26] MEDS ORDERED: Digoxin 0.125 MG TAB PO SCH (12:00)
[2017-01-26 15:33] LABS: Anion Gap 11 mmol/L (10-20); BUN (Urea Nitrogen) 23 mg/dL (8.4-25.7); Calc. Creatinine Clearance 56 mL/min (70-130); Calcium 8.7 mg/dL (7.8-10.44); Carbon Dioxide 29 mmol/L (23-31); Chloride 92 mmol/L (98-107); Estimated GFR-MDRD 65; Phosphorus 2.9 mg/dL (2.3-4.7)
[2017-01-26] MEDS: Temazepam 15 MG CAP PO PRN (20:35)
[2017-01-26] MEDS: Atorvastatin Calcium 40 MG TAB PO SCH (20:35)
[2017-01-27 05:53] LABS: Anion Gap 10 mmol/L (10-20); BUN (Urea Nitrogen) 19 mg/dL (8.4-25.7); Calc. Creatinine Clearance 60 mL/min (70-130); Calcium 8.8 mg/dL (7.8-10.44); Carbon Dioxide 30 mmol/L (23-31); Chloride 91 mmol/L (98-107); Estimated GFR-MDRD 71
[2017-01-27 06:28] VITALS: BMI 20.9
[2017-01-27] MEDS: Polyethylene Glycol 3350 17 GM Packet PO SCH (08:21)
[2017-01-27] MEDS: Digoxin 0.125 MG TAB PO SCH (08:21)
[2017-01-27] MEDS: Benzonatate 100 MG CAP PO PRN ×2 (08:21→18:43)
[2017-01-27] MEDS: Carvedilol 3.125 MG TAB PO SCH ×2 (08:25→21:28)
[2017-01-27] MEDS: Clopidogrel Bisulfate 75 MG TAB PO SCH (08:25)
[2017-01-27] MEDS: Guaifenesin DM 100-10/5 ML UDCUP PO PRN ×2 (08:43→18:43)
--- NOTE | 2017-01-27 11:42 | PDOC.PN ---
- Subjective Encounter Start Date: 01/27/17 Encounter Start Time: 11:40 Patient seen at bedside. No overnight events, no further C/P. - Objective Resuscitation Status: Resuscitation Status FULL:Full Resuscitation MAR Reviewed: Yes Vital Signs & Weight: Vital Signs (12 hours) Temp Pulse Resp BP Pulse Ox 01/27/17 08:21 89 01/27/17 04:59 97.4 F L 94 16 120/73 100 Weight Admit Weight 166 lb Weight 162 lb 12.8 oz Most Recent Monitor Data Heart Rate from ECG 87 NIBP 110/66 NIBP BP-Mean 93 Respiration from ECG 23 SpO2 100 I&O: 01/26/17 01/27/17 01/28/17 06:59 06:59 06:59 Intake Total 762 1449 Output Total 425 850 Balance 337 599 Result Diagrams: 01/26/17 03:48 01/27/17 04:56 Phys Exam - Physical Examination Constitutional: NAD HEENT: moist MMs Neck: no JVD Respiratory: clear to auscultation bilateral Cardiovascular: irregular Gastrointestinal: soft Musculoskeletal: pulses present Psychiatric: A&O x 3 Dx/Plan (1) Atrial fibrillation Code(s): I48.91 - UNSPECIFIED ATRIAL FIBRILLATION Status: Acute (2) AMI (acute myocardial infarction) Code(s): I21.9 - ACUTE MYOCARDIAL INFARCTION, UNSPECIFIED Status: Acute Qualifiers: Myocardial infarction ST status: ST elevation myocardial infarction (3) CHF exacerbation Code(s): I50.9 - HEART FAILURE, UNSPECIFIED Status: Acute Qualifiers: Congestive heart failure type: combined Qualified Code(s): I50.43 - Acute on chronic combined systolic (congestive) and diastolic (congestive) heart failure Comment: EF of 25% (4) Systolic heart failure Code(s): I50.20 - UNSPECIFIED SYSTOLIC (CONGESTIVE) HEART FAILURE Status: Acute (5) Inguinal hernia of left side without obstruction or gangrene Code(s): K40.90 - UNIL INGUINAL HERNIA, W/O OBST OR GANGR, NOT SPCF RECUR Status: Chronic - Plan cont current plan of care * Continue with current cardiac management. * Hernia surgery will need to be postponed due to recent AMI * Plavix/BB/Digoxin
--- NOTE | 2017-01-27 13:37 | PRG ---
DATE OF SERVICE: 01/27/2017 SUBJECTIVE: Mr. Cline states he is doing well. He has ambulated. No chest pain or pressure noted. His heart rate appears to be improved. His blood pressure is also improved. OBJECTIVE: ITAL SIGNS: Blood pressure 120/73, pulse 89, temperature 97.4. I's and O's +600 although weight has decreased from 169 to 162. LUNGS: Clear to auscultation. CARDIAC: Irregularly irregular. ABDOMEN: Soft, nontender, nondistended. EXTREMITIES: No edema. IMPRESSION: 1. Ischemic cardiomyopathy. 2. Atrial fibrillation. 3. Recent myocardial infarction. RECOMMENDATIONS: 1. Increase Coreg to 6.25 mg one p.o. b.i.d. 2. Ambulate. 3. Continue digoxin. 4. Avoid KALPANA inhibitor therapy and ARB given low blood pressure. We would prefer increasing Coreg a t this point for better rate control and negative inotropic support. Anticipate home in the next 1-2 days if heart rate and blood pressure are stable.
--- NOTE | 2017-01-27 17:30 | PRG ---
DATE OF SERVICE: 01/27/2017 SUBJECTIVE: An 81-year-old male being seen for hyponatremia. The patient denies any nausea, vomiting, or chest pain. PHYSICAL EXAMINATION: GENERAL: Patient is awake, alert. VITAL SIGNS: Afebrile, pulse , breathing at 16, blood pressure 120/73. GENERAL APPEARANCE AND MENTAL STATUS: Fair. HEAD/NECK: Normocephalic. Atraumatic. EYES: EOMI. No deformity. EARS: Clear. No ulcers. NOSE: Intact. No lesions. MOUTH: Clear. No discharge. THROAT: Clear. No exudate. LUNGS: Clear. No crackles. CARDIAC: S1, S2. No rub. ABDOMEN: Benign. BS+. GENITALIA/RECTUM: Marin absent. BACK/EXTREMITIES: Edema 0+ Ulcer-. NEUROLOGICAL: Alert and motor intact. SKIN: Rash- Bruise- LYMPHATICS: Edema- Ulcer-. LABORATORY DATA: Show sodium of 126. ASSESSMENT AND PLAN: 1. 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 We would recommend 800 mL fluid restriction. 2. Anemia, stable. 3. Hypertension, stable. 4. Congestive heart failure, stable. MTDD
[2017-01-27 17:56] LABS: Anion Gap 11 mmol/L (10-20); BUN (Urea Nitrogen) 18 mg/dL (8.4-25.7); Calc. Creatinine Clearance 61 mL/min (70-130); Carbon Dioxide 30 mmol/L (23-31); Chloride 91 mmol/L (98-107); Estimated GFR-MDRD 75
[2017-01-27] MEDS: Atorvastatin Calcium 40 MG TAB PO SCH (21:28)
[2017-01-27] MEDS: Acetaminophen/Codeine 30-300mg Tablet PO PRN (23:43)
[2017-01-28] MEDS: Carvedilol 3.125 MG TAB PO SCH (08:39)
[2017-01-28] MEDS: Clopidogrel Bisulfate 75 MG TAB PO SCH (08:39)
[2017-01-28] MEDS: Polyethylene Glycol 3350 17 GM Packet PO SCH (08:39)
[2017-01-28] MEDS: Digoxin 0.125 MG TAB PO SCH (08:40)
[2017-01-28] MEDS ORDERED: Lisinopril 2.5 MG TAB PO SCH (09:00)
--- NOTE | 2017-01-28 10:42 | PDOC.PN ---
- Subjective Encounter Start Date: 01/28/17 Encounter Start Time: 10:40 Patient seen at bedside. No further C/P, ambulating the halls with cardiac rehab. - Objective Resuscitation Status: Resuscitation Status FULL:Full Resuscitation MAR Reviewed: Yes Vital Signs & Weight: Vital Signs (12 hours) Temp Pulse Resp BP Pulse Ox 01/28/17 08:40 73 01/28/17 08:39 73 01/28/17 08:00 97.6 F 73 16 117/58 L 98 01/28/17 04:00 62 18 110/58 L 100 01/28/17 01:07 98 Weight Admit Weight 166 lb Weight 164 lb 3.2 oz Most Recent Monitor Data Heart Rate from ECG 87 NIBP 110/66 NIBP BP-Mean 93 Respiration from ECG 23 SpO2 100 I&O: 01/27/17 01/28/17 01/29/17 06:59 06:59 06:59 Intake Total 1449 1780 Output Total 850 150 Balance 599 1630 Result Diagrams: 01/26/17 03:48 01/27/17 17:28 Phys Exam - Physical Examination Constitutional: NAD HEENT: moist MMs Neck: no JVD Respiratory: clear to auscultation bilateral Cardiovascular: RRR Gastrointestinal: soft Musculoskeletal: pulses present Neurological: moves all 4 limbs Psychiatric: A&O x 3 Dx/Plan (1) Atrial fibrillation Code(s): I48.91 - UNSPECIFIED ATRIAL FIBRILLATION Status: Acute (2) AMI (acute myocardial infarction) Code(s): I21.9 - ACUTE MYOCARDIAL INFARCTION, UNSPECIFIED Status: Resolved Qualifiers: Myocardial infarction ST status: ST elevation myocardial infarction (3) CHF exacerbation Code(s): I50.9 - HEART FAILURE, UNSPECIFIED Status: Acute Qualifiers: Congestive heart failure type: combined Qualified Code(s): I50.43 - Acute on chronic combined systolic (congestive) and diastolic (congestive) heart failure Comment: EF of 25% (4) Systolic heart failure Code(s): I50.20 - UNSPECIFIED SYSTOLIC (CONGESTIVE) HEART FAILURE Status: Acute (5) Inguinal hernia of left side without obstruction or gangrene Code(s): K40.90 - UNIL INGUINAL HERNIA, W/O OBST OR GANGR, NOT SPCF RECUR Status: Chronic - Plan cont current plan of care, PT/OT, social sciences research scientist, out of bed/ambulate * Continue with current management. * Digoxin for Rate control * Plavix * No KALPANA/ARB due do hypotension * Cardiac Rehab * D/C in 1-2 days
[2017-01-28 10:57] LABS: Anion Gap 12 mmol/L (10-20); BUN (Urea Nitrogen) 17 mg/dL (8.4-25.7); Calc. Creatinine Clearance 56 mL/min (70-130); Carbon Dioxide 28 mmol/L (23-31); Chloride 90 mmol/L (98-107); Estimated GFR-MDRD 67
--- NOTE | 2017-01-28 12:16 | PRG ---
DATE OF SERVICE: 01/28/2017 SUBJECTIVE: An 81-year-old gentleman being seen for hyponatremia. The patient denies any nausea, vo miting or chest pain. PHYSICAL EXAMINATION: GENERAL: Patient is awake, alert. VITAL SIGNS: Afebrile, pulse 70, breathing at 16, blood pressure 170/58. GENERAL APPEARANCE AND MENTAL STATUS: Fair. HEAD/NECK: Normocephalic. Atraumatic. EYES: EOMI. No deformity. EARS: Clear. No ulcers. NOSE: Intact. No lesions. MOUTH: Clear. No discharge. THROAT: Clear. No exudate. LUNGS: Clear. No crackles. CARDIAC: S1, S2. No rub. ABDOMEN: Benign. BS+. GENITALIA/RECTUM: Marin absent. BACK/EXTREMITIES: Edema 0+ Ulcer-. NEUROLOGICAL: Alert and motor intact. SKIN: Rash- Bruise- LYMPHATICS: Edema- Ulcer-. LABORATORY DATA: Show hemoglobin 12.1, sodium is 125. ASSESSMENT AND RECOMMENDATIONS: 1. 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 We would re commend fluid restriction at 800 mL. 2. Anemia, stable. 3. Medications based on GFR are appropriate.
[2017-01-28] MEDS: Benzonatate 100 MG CAP PO PRN (14:42)
[2017-01-28] MEDS: Guaifenesin DM 100-10/5 ML UDCUP PO PRN (14:43)
[2017-01-28 15:19] VITALS: BP 106/53; TEMP 97.5
--- NOTE | 2017-01-28 18:27 | DIS ---
AGAINST MEDICAL ADVICE DATE OF ADMISSION: 01/15/2017 DATE OF AMA: 01/28/2017 HOSPITAL COURSE: Mr. Diallo Hua Jr. is an 81-year-old male who presented to the emergency room compla ining of generalized weakness. Upon initial evaluation, patient noted to be hyponatremic as well as having an acute congestive heart failure exacerbation. The patient was given intravenous diuresis. Nephrology was consulted in regards to his hyponatremia. Nephrology felt that it is most likely seco ndary to cardiorenal syndrome. He was started on dobutamine given his low blood pressure. He was ap propriately diuresed. While here, the patient did complain of dysphagia, at which time a gastroenter ology consult was placed and the patient had barium swallow time and dysphagia resolved. His sodium improved mildly. It was noted that he had a hernia. General Surgery evaluated the hernia and stated he would be appropriate for intervention. Cardiology cleared the patient for surgery; however, on day of the surgery, the patient noted to be hypotensive and given his extensive cardiac history, surgery was canceled and postponed. The patient was then further monitored on telemetry. On 01/05, the patient began to develop chest pain which was substernal. He did have a ST segment eleva tion AL and he immediately underwent cardiac catheterization with subsequent stent placement. Therea fter, the patient will be placed into the ICU. Thereafter, he was transferred to the telemetry floor . His cardiac status was monitored and his blood pressure did improve over certain medications such as ACEs and ARBs were held due to his relative hypotension. He did have atrial fibrillation and was started on digoxin. He was placed on Plavix for his stent. The patient's sodium gradually began to decline once more. On the day of his AMA, it was 125. The patient began to feel restless and wanted to go home. I explained to him that he would need appropriate clearance from specialists prior to d ischarge. Cardiology cleared the patient for subsequent followup as an outpatient; however given the patient's sodium, Nephrology was to watch for another day. All of this was explained to the patient as well as the daughter at length by myself as well as specialist and the charge nurse. The patient stated he still wanted to go home, knowing the risks of going home. Palliative care was offered as the patient did not want any further treatments; however, he does not want to wait for palliative car e. He decided to go against medical advice on 01/28/2017, knowing the risks of leaving without appro priate discharge instructions and discharge medications. This was also relayed to the daughter. The y will follow up Dr. Jean-Baptiste on Tuesday according to them. Because the patient has had a stent placed in as well as arrhythmia, I have given her a prescription for Plavix and digoxin. However rather pr escriptions, he will need to follow up with Dr. Jean-Baptiste and his other specialists for further care. He understands the risks of leaving against medical advice as well as his family members and they wis h to leave him against medical advice despite the plan that was put forth to them. He left against m edical advice on 01/28/2017.
--- NOTE | 2017-01-30 08:21 | EKG ---
Test Reason : Blood Pressure : / mmHG Vent. Rate : 114 BPM Atrial Rate : 065 BPM P-R Int : 000 ms QRS Dur : 138 ms QT Int : 376 ms P-R-T Axes : 000 -45 134 degrees QTc Int : 518 ms Poor data quality, interpretation may be adversely affected Atrial fibrillation Left axis deviation Non-specific intra-ventricular conduction block Cannot rule out Anterior infarct , age undetermined T wave abnormality, consider lateral ischemia Abnormal ECG When compared with ECG of 23-JAN-2017 10:46, (Unconfirmed) Current undetermined rhythm precludes rhythm comparison, needs review T wave inversion more evident in Anterolateral leads Confirmed by Jh FRIEDMAN ([id number]) on 01/30/2017 8:21:27 AM Referred By: MARKIE Confirmed By:Jh FRIEDMAN
== END 2017-01-28 17:39 | disposition left against medical advice (07) | DRG 246 ==
LOC: ERS 15:08 → 2NO 17:05 → CCU 01-23 10:38 → 2NO 01-26 17:43
PROVIDERS: ADMIT Internal Medicine; ATTEND Internal Medicine
PROC: 027034Z Dilation of Coronary Artery, One Artery with Drug-eluting Intraluminal Device, Percutaneous Approach (ICD-10-PCS; principal; 2017-01-23)
PROC: 4A023N7 Measurement of Cardiac Sampling and Pressure, Left Heart, Percutaneous Approach (ICD-10-PCS; 2017-01-23)
PROC: B2111ZZ Fluoroscopy of Multiple Coronary Arteries using Low Osmolar Contrast (ICD-10-PCS; 2017-01-23)
DX: I13.0 Hypertensive heart and chronic kidney disease with heart failure and stage 1 through stage 4 chronic kidney disease, or unspecified chronic kidney disease (principal); I21.3 ST elevation (STEMI) myocardial infarction of unspecified site; N17.9 Acute kidney failure, unspecified; I47.2 Ventricular tachycardia; E87.2 Acidosis; I95.89 Other hypotension; E87.3 Alkalosis; E87.1 Hypo-osmolality and hyponatremia; E86.1 Hypovolemia; E87.70 Fluid overload, unspecified; I48.0 Paroxysmal atrial fibrillation; I50.43 Acute on chronic combined systolic (congestive) and diastolic (congestive) heart failure; E87.5 Hyperkalemia; I25.5 Ischemic cardiomyopathy; I25.10 Atherosclerotic heart disease of native coronary artery without angina pectoris; D53.9 Nutritional anemia, unspecified; Z86.73 Personal history of transient ischemic attack (TIA), and cerebral infarction without residual deficits; Z86.718 Personal history of other venous thrombosis and embolism; Z88.6 Allergy status to analgesic agent; K40.90 Unilateral inguinal hernia, without obstruction or gangrene, not specified as recurrent; N18.2 Chronic kidney disease, stage 2 (mild); Z91.19 Patient's noncompliance with other medical treatment and regimen; Z87.891 Personal history of nicotine dependence; K59.00 Constipation, unspecified
CPT/HCPCS: 36415; 36416; 71010; 74220; 76942; 80048; 80053; 80061; 82436; 82533; 82550; 82553; 82570; 82805; 83605; 83735; 83880; 83930; 83935; 84100; 84133; 84300; 84443; 84484; 85025; 85347; 85610; 92928; 93005; 93010; 93454; 93798; 96361; 96374; A4216; C1725; C1769; C1874; C1887; C9600; J1160; J1250; J1642; J1644; J1940; J2405; J3010; P9045